=== PATIENT | female | born 1940 | race Caucasian/White ===

== ENCOUNTER 2017-06-19 12:23 | Emergency (ER) | payer MEDICARE ==
[~2017-06-19] VITALS: Ht 154.9 cm; Wt 82.6 kg
[~2017-06-19 12:23] MED LIST: ALLOPURINOL100 MG PO; AMLODIPINE BESYL5 MG PO; ATORVASTATIN CA20 MG PO; DIOVAN160 MG PO; FUROSEMIDE40 MG PO; GENERLAC10 GM/15 M; HUMULIN R100 UNIT/2 SC; HUMULIN R100 UNIT/2 SQ; HYDRALAZINE HCL10 MG PO; LEVEMIR100 UNIT/1 SQ; LEVOTHYROXINE50 MCG PO; METOPROLOL TART25 MG PO; METOPROLOL TART50 MG PO; NEXIUM20 MG PO; OMEGA-31000 MG PO; PANTOPRAZOLE SO40 MG PO; PLAVIX75 MG PO; PRAVASTATIN SOD80 MG PO; SIMVASTATIN40 MG PO
--- OUTSIDE RECORDS SUMMARY | 2017-06-19 12:25 | XMS REPORT ---
Author Author [facility] Address Unknown Phone Unavailable Care Team Providers Care Senior Quantity Surveyor Name Role Phone SKY LI Unavailable Unavailable Problems This patient has no known problems. Allergies, Adverse Reactions, Alerts This patient has no known allergies or adverse reactions. Medications This patient has no known medications. Results Test Description Test Time Test Comments Text Results Atomic Results Result Comments KNEE RIGHT THREE VIEWS [place] [address] Patient Name: TESS MCLAIN MR #: [id number] : 1940 Age/Sex: 76/F Req #: [id number] Adm Physician: Ordered by: SKY LI MD Report #: [id number] Location: ER Room/Bed: Procedure: [id number] DX/KNEE RIGHT THREE VIEWS Exam Date: 02/24/17 Exam Time: 182 REPORT STATUS: Signed RIGHT KNEE X-RAY - 3 VIEWS HISTORY: COMPARISON: None available. FINDINGS: Bones: No acute displaced fracture. Osseous alignment is within normal limits. Joints: Mild to moderate tricompartmental degenerative changes. Soft tissues: Diffuse vascular calcifications. IMPRESSION: No acute radiographic abnormality. Signed by: Dr. Mahesh Mendoza M.D. on 02/24/2017 6:45 PM Dictated By: MAHESH MENDOZA MD 44 COPY TO: SKY LI MD ANKLE 3 + VIEWS RIGHT [place] [id number] [place] [address] Patient Name: TESS MCLAIN MR #: [id number] : 1940 Age/Sex: 76/F Req #: [id number] [facility] Physician: Ordered by: SKY LI MD Report #: [id number] Location: ER Room/Bed: Procedure: [id number] DX/ANKLE 3 + VIEWS RIGHT Exam Date: 02/24/17 Exam Time: 1824 REPORT STATUS: Signed Right ankle x-ray - 3 views HISTORY: COMPARISON: None available. FINDINGS: Bones: No acute displaced fracture. Mild cortical deformity of the medial malleolus likely remote trauma. Mild diffuse bone demineralization. Osseous alignment is within normal limits. Joints: Mild degenerative changes of the metatarsal bones. Calcaneal enthesopathy. Soft tissues: Soft tissue swelling surrounding the right ankle. IMPRESSION: Soft tissue swelling surrounding the right ankle without acute fractures. Signed by: Dr. Mahesh Mendoza M.D. on 02/24/2017 6:44 PM Dictated By: MAHESH MENDOZA MD 43 Transcribed By: ISAEL on 1843 COPY TO: SKY LI MD ELBOW LEFT COMPLETE [facility] [address] [place] [address] Patient Name: TESS MCLAIN MR #: [id number] : 1940 Age/Sex: 76/F Req #: [id number] Adm Physician: Ordered by: SKY LI MD Report #: [id number] Location: ER Room/Bed: Procedure: [id number] DX/ELBOW LEFT COMPLETE Exam Date: 02/24/17 Exam Time: 1824 REPORT STATUS: Signed LEFT ELBOW X-RAY - 3 VIEWS HISTORY: COMPARISON: None available. FINDINGS: Bones: No acute displaced fracture. Osseous alignment is within normal limits. Joints: The joint spaces are well-maintained. Soft tissues: The soft tissues appear unremarkable. IMPRESSION: No acute radiographic abnormality. Signed by: Dr. Mahesh Mendoza M.D. on 02/24/2017 6:46 PM Dictated By: MAHESH MEDNOZA MD 45 Transcribed By: ISAEL on 02/24/171845 COPY TO: SKY LI MD
--- NOTE | 2017-06-19 13:52 | Diagnostic Imaging Report ---
Examination: CT BRAIN WITHOUT CONTRAST History:Headaches. Comparison studies:None Technique: Axial images were obtained from the skull base to the vertex. Coronal and sagittal images reconstructed from the axial data. Intravenous contrast: None Findings: Scalp: No abnormalities. Bones: No fractures, blastic or lytic lesions. Brain sulci: Mild volume loss for age. Ventricles: No hydrocephalus. Extra-axial space: No abnormalities. Parenchyma: There is a chronic infarct of the right centrum semiovale, unchanged. There are chronic lacunar infarcts of the right striatocapsular region, bilateral putamina and left lateral thalamus. Again demonstrated are patchy areas of hypoattenuation in the periventricular and subcortical white matter, nonspecific. No masses, hemorrhage, or acute cortical based vascular insults. Sellar/suprasellar region: No abnormalities. Craniocervical junction: Patent foramen magnum. No Chiari one malformation. Incidental findings: None. Impression: 1. No new or acute intracranial abnormalities. No change from prior head CT performed June 25, 2016. 2. Unchanged mild volume loss. 3. Unchanged moderate chronic microvascular skinny change. 4. Unchanged chronic infarct of the right centrum semiovale. 5. Unchanged chronic lacunar infarcts, as above. Signed by: Dr. Maria Arreola M.D. on 06/19/2017 1:49 PM
--- NOTE | 2017-06-19 14:18 | Diagnostic Imaging Report ---
PROCEDURE: Frontal and lateral views of the chest. COMPARISON: Patients [facility], , CHEST SINGLE (PORTABLE), 11/28/2016, 14:54. INDICATIONS: HEADACHE FINDINGS: Lines/tubes: None. Lungs: The lungs are well inflated and clear. There is no evidence of pneumonia or pulmonary edema. Pleura: There is no pleural effusion or pneumothorax. Heart and mediastinum: Cardiac silhouette is mildly enlarged, but stable. Pulmonary vasculature is normal. Bones: No acute bony abnormality. Degenerative changes in the thoracic spine. IMPRESSION: 1. No acute cardiopulmonary abnormalities. Marquise Bourgeois M.D. Dictated by: Marquise Bourgeois M.D. on 06/19/2017 at 14:17 Electronically approved by: Marquise Bourgeois M.D. on 06/19/2017 at 14:17
[2017-06-19 17:43] VITALS: BP 125/54
== END 2017-06-19 17:45 | disposition home or self-care (01) ==
LOC: ER 12:32
DX: I95.2 Hypotension due to drugs (principal); T46.5X5A Adverse effect of other antihypertensive drugs, initial encounter; Y92.019 Unspecified place in single-family (private) house as the place of occurrence of the external cause; E11.9 Type 2 diabetes mellitus without complications; E78.5 Hyperlipidemia, unspecified; Z86.73 Personal history of transient ischemic attack (TIA), and cerebral infarction without residual deficits
CPT/HCPCS: 70450; 71046; 93005; 99283

== ENCOUNTER 2017-12-20 17:25 | Inpatient (IN) | payer MEDICARE ==
[~2017-12-20] VITALS: Ht 154.9 cm; Wt 68.7 kg
[~2017-12-20 17:25] MED LIST changes: +SODIUM BICARBO650 MG PO; +vit b 12
--- NOTE | 2017-12-20 18:03 | Diagnostic Imaging Report ---
Examination: Single AP view of the chest. COMPARISON: Chest 2 views 06/19/2017 INDICATION: Abdominal pain, weakness IMPRESSION: 1. Lines and Tubes: None 2. Lungs are grossly clear. No consolidation or effusion. 3. Stable mild enlargement of the cardiac silhouette. Pulmonary vasculature is normal. Atherosclerotic calcification of the aortic arch. 4. No acute bony abnormalities. Stable widening of the right acromial clavicular space, which may represent prior AC separation. Signed by: Dr. Marquise Bourgeois M.D. on 12/20/2017 6:00 PM
[2017-12-20 18:17] LABS: BASOPHILS % 0.5 % (0.0-1.0); EOSINOPHILS # (AUTO) 0.1 (0.0-0.4); EOSINOPHILS % 1.4 % (0.0-6.0); HEMATOCRIT 31.8 % (34.2-44.1); HEMOGLOBIN 10.4 g/dL (12.0-16.0); LYMPHOCYTES # (AUTO) 1.3 (1.0-3.2); LYMPHOCYTES % 19.4 % (18.0-39.1); MEAN CORPUSCULAR HEMOGLOBIN 31.5 pg (28-32); MEAN CORPUSCULAR HGB CONC 32.7 g/dL (31-35); MEAN CORPUSCULAR VOLUME 96.4 fL (81-99); MONOCYTES # (AUTO) 0.5 (0.2-0.8); NEUTROPHILS # (AUTO) 4.6 (2.1-6.9); NEUTROPHILS % 70.2 % (38.7-80.0); PLATELET COUNT 154 x10e3/uL (140-360); RED CELL DISTRIBUTION WIDTH 12.7 % (11.7-14.4)
[2017-12-20 18:20] LABS: CLARITY,URINE SL CLOUDY (CLEAR); COLOR,URINE YELLOW (YELLOW); KETONES,URINE 1+ (NEGATIVE); LEUKOCYTE ESTERASE ,URINE 2+ (NEGATIVE); NITRITE,URINE NEGATIVE (NEGATIVE); PROTEIN,URINE DIPSTICK 2+ (NEGATIVE); URINE UROBILINOGEN 0.2 mg/dL (0.2 - 1)
[2017-12-20 18:21] LABS: BILIRUBIN,URINE 2+ (NEGATIVE)
[2017-12-20 18:25] LABS: INR 1.55; PROTHROMBIN TIME 17.5 seconds (11.9-14.5)
[2017-12-20 18:26] LABS: PARTIAL THROMBOPLASTIN TIME 35.8 seconds (23.8-35.5)
[2017-12-20 18:30] LABS: BACTERIA,URINE MANY /HPF
[2017-12-20 18:35] LABS: ALBUMIN 2.3 g/dL (3.5-5.0); ALBUMIN/GLOBULIN RATIO 0.9 (0.8-2.0); ANION GAP 21.2 mmol/L (8-16); CALCIUM 8.8 mg/dL (8.4-10.2); CREATININE, SERUM 4.79 mg/dL (0.57-1.11); POTASSIUM 4.2 mmol/L (3.5-5.1)
[2017-12-20 18:41] LABS: CREATINE KINASE MB 1.3 ng/mL (0-5.0)
[2017-12-20 18:42] LABS: B-TYPE NATRIURETIC PEPTIDE2 489.7 pg/mL (0-100)
[2017-12-20] MEDS ORDERED: ASPIRIN 81 MG CHEW TAB PO ONE (18:45)
[2017-12-20 20:00] VITALS: BP 107/58
--- NOTE | 2017-12-20 20:20 | Diagnostic Imaging Report ---
EXAM: CT Abdomen and Pelvis WITH contrast INDICATION: Abdominal pain, fall, renal failure, weakness COMPARISON: None. TECHNIQUE: Abdomen and pelvis were scanned utilizing a multidetector helical scanner from the lung base to the pubic symphysis after administration of IV contrast. Coronal and sagittal reformations were obtained. Routine protocol is performed. IV CONTRAST: None. ORAL CONTRAST: None RADIATION DOSE: Total DLP: 583.81 mGy*cm Estimated effective dose: (DLP x 0.015 x size factor) mSv COMPLICATIONS: None FINDINGS: LINES and TUBES: None. LOWER THORAX: Atherosclerotic calcifications of the coronary arteries and thoracic aorta. HEPATOBILIARY: No focal hepatic lesions. The common bile duct is mildly dilated to 1.1 cm. GALLBLADDER: The gallbladder is distended. No radio-opaque stones or sludge. No wall thickening. SPLEEN: No splenomegaly. PANCREAS: No focal masses or ductal dilatation. ADRENALS: No adrenal nodules KIDNEYS/URETERS: No hydronephrosis. No cystic or solid mass lesions. A 3 mm calcification in the upper pole of the left kidney (series 401, image 59) is favored to represent a vascular calcification rather than a stone. GI TRACT: No abnormal distention, wall thickening, or evidence of bowel obstruction. There is a large amount of stool in the distal sigmoid and rectum. There are numerous sigmoid diverticula without evidence of acute inflammation. Unusual appearance of the proximal colon suggests prior right colon surgery. The appendix is not visualized. PELVIC ORGANS/BLADDER: The bladder is collapsed by a Bryson catheter. LYMPH NODES: No lymphadenopathy. VESSELS: There is severe atherosclerotic disease in the aorta and major arterial branches. PERITONEUM / RETROPERITONEUM: No free air or fluid. BONES: Multilevel degenerative changes of the thoracic and lumbar spine. There is a vertebral body hemangioma in the T9 vertebral body. SOFT TISSUES: There are multiple soft tissue nodules in the subcutaneous fat of the abdomen, likely related to subcutaneous injections. IMPRESSION: 1. Large amount of stool in the distal sigmoid and rectum, suggestive of constipation. 2. The gallbladder is distended. The common bile duct is mildly dilated. Consider right upper quadrant ultrasound to exclude cholelithiasis or choledocholithiasis. Edmond Jaquez MD Signed by: Dr. Edmond Jaquez M.D. on 12/20/2017 8:17 PM
[2017-12-20 22:45] VITALS: BP 107/58
[2017-12-20] MEDS ORDERED: XARELTO10 MG PO (22:56)
[2017-12-21] VITALS (9 sets, daily range): BP systolic 91–119; BP diastolic 52–66
[2017-12-21] MEDS: CEFTRIAXONE SOD 1 GM VIAL IV SCH (00:28)
[2017-12-21 03:52] LABS: BASOPHILS % 0.3 % (0.0-1.0); EOSINOPHILS # (AUTO) 0.1 (0.0-0.4); EOSINOPHILS % 1.9 % (0.0-6.0); HEMATOCRIT 32.8 % (34.2-44.1); HEMOGLOBIN 10.6 g/dL (12.0-16.0); LYMPHOCYTES # (AUTO) 1.7 (1.0-3.2); LYMPHOCYTES % 26.3 % (18.0-39.1); MEAN CORPUSCULAR HEMOGLOBIN 31.2 pg (28-32); MEAN CORPUSCULAR HGB CONC 32.3 g/dL (31-35); MEAN CORPUSCULAR VOLUME 96.5 fL (81-99); MONOCYTES # (AUTO) 0.5 (0.2-0.8); MONOCYTES % 7.9 % (4.4-11.3); NEUTROPHILS # (AUTO) 4.1 (2.1-6.9); NEUTROPHILS % 63.3 % (38.7-80.0); PLATELET COUNT 140 x10e3/uL (140-360); RED CELL DISTRIBUTION WIDTH 12.7 % (11.7-14.4)
[2017-12-21 04:08] LABS: ALBUMIN 2.4 g/dL (3.5-5.0); ALKALINE PHOSPHATASE 81 IU/L (40-150); ANION GAP 19.8 mmol/L (8-16); BLOOD UREA NITROGEN 64 mg/dL (7-26); BUN/CREATININE RATIO 13 (6-25); CALCIUM 9.1 mg/dL (8.4-10.2); CARBON DIOXIDE 25 mmol/L (22-29); CHLORIDE 100 mmol/L (98-107); CREATININE, SERUM 4.87 mg/dL (0.57-1.11); EST GLOMERULAR FILTRATION RATE 9 ML/MIN (60-); GLUCOSE 68 mg/dL (74-118); POTASSIUM 3.8 mmol/L (3.5-5.1); SODIUM 141 mmol/L (136-145)
[2017-12-21 04:09] LABS: ALANINE AMINOTRANSFERASE < 6 IU/L (0-55)
[2017-12-21 04:55] LABS: CREATINE KINASE MB 1.5 ng/mL (0-5.0)
[2017-12-21] MEDS: LEVOTHYROXINE SODIUM 50 MCG TAB PO SCH (06:42)
--- NOTE | 2017-12-21 07:23 | Consultation ---
DATE OF CONSULTATION: December 21, 2017 HISTORY OF PRESENT ILLNESS: Patient is a 76-year-old female, who was admitted to the hospital with weakness and urinary tract infection. She has history of chronic kidney disease, has a left upper arm AV fistula, which was placed about 2-1/2 months ago, has not quite developed enough for dialysis and the patient may need hemodialysis soon, although evaluation by nephrology is pending at this time. Patient has no specific complaints at this time. Says she feels better since she was admitted. PAST MEDICAL HISTORY: Significant for diabetes, chronic kidney disease, hypertension, recent cerebrovascular accident. MEDICATIONS: Listed in the chart. ALLERGIES: SHE HAS ALLERGIES TO ATORVASTATIN, CIPRO, HYDROMORPHONE, ROSUVASTATIN AND ADHESIVE TAPE. FAMILY HISTORY: Noncontributory. SOCIAL HISTORY: The patient does not smoke cigarettes or drink alcohol. REVIEW OF SYSTEMS: Negative except for as stated above. She has no chest pain. No fever. No shortness of breath. EXAM GENERAL: The patient is awake and alert. VITALS: Normal. HEENT: Reveals no scleral icterus. NECK: Has no masses. LUNGS: Equal breath sounds, are clear bilaterally. CARDIAC: Has irregular rate and rhythm. ABDOMEN: Soft. There is no tenderness. EXTREMITIES: There is a healed wound on left arm with a palpable thrill over the fistula. Fistula is palpable, but seems somewhat deep in the arm. There is no edema. LAB TESTS: White blood cell count is normal, hemoglobin 10, hematocrit 33. Chemistries, elevated BUN at a 64, creatinine 4.87. Urinalysis revealed 11-20 white cells, positive leukocyte esterase, positive ketones, many bacteria. ASSESSMENT: A 76-year-old female with chronic kidney disease, possibly end-stage. Await nephrology evaluation if she needs new access for hemodialysis at this time. In which case, a tack catheter could be placed, possibly a tunneled catheter as the arteriovenous fistula in her left arm is not quite ready to be used. This was explained to the patient. Thank you for asking me to see Ms. Persaud. Job#: [id number] CQ
[2017-12-21] MEDS: ACETAMINOPHEN/CODEINE 300MG - 30MG TAB PO PRN ×2 (08:50→16:06)
[2017-12-21] MEDS: PANTOPRAZOLE SOD 40 MG TABEC PO SCH ×2 (08:50→17:40)
[2017-12-21] MEDS ORDERED: SIMVASTATIN 40 MG TAB PO SCH (09:00)
[2017-12-21] MEDS ORDERED: METOPROLOL TARTRATE 25 MG TAB PO SCH (09:00)
[2017-12-21] MEDS: PRAVASTATIN 20 MG TAB PO SCH (09:13)
[2017-12-21] MEDS: SODIUM BICARBONATE 650 MG TAB PO SCH (09:13)
[2017-12-21] MEDS: METOPROLOL TARTRATE 50 MG TAB PO SCH ×2 (09:13→17:00)
[2017-12-21] MEDS: BISACODYL 10 MG SUPP PR PRN (09:13)
--- NOTE | 2017-12-21 10:28 | Consultation ---
DATE OF CONSULTATION: RENAL CONSULTATION Thank you for the consultation. Ms. Persaud is a pleasant 76-year-old female patient of mine with chronic kidney disease, stage 5, who I have been following for quite some time in the office, and has been close to starting on dialysis. She has a recent AV fistula placed on the left arm, which is still maturing. She has been seen by Dr. Marshall for this. The patient has been having ongoing uremic symptoms, which have now worsened. Her daughter called me a couple of days ago stating that the mother is feeling extremely weak and having nausea and vomiting, and is just not able to eat much at all and has decreased appetite. She proceeded to bring her to the emergency room. The patient was found to have elevated renal indices. BUN 62 and creatinine was 4.79 today and 4.9. BUN was 64, potassium 3.8. Renal consultation has been asked for in the management of her chronic kidney disease, 5, and the possibility of starting her dialysis sooner than later. I did discuss the case with her daughter, as well as the patient. The patient is agreeable especially since she is having more and more uremic symptoms, and is just not getting any better. Her AV fistula is not quite ready to be cannulated yet. She will likely need a tunneled dialysis catheter, which she is agreeable to as well. At the present time in her room, she is not in any acute respiratory distress. Does not have any fever. No chills. No abdominal pain. Does have nausea, vomiting and decreased appetite. She does have generalized pain as well. 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 MEDICATIONS: That she has been on is Plavix, levothyroxine, metoprolol, Protonix, pravastatin, Xarelto, and sodium bicarbonate. ALLERGIES: ADHESIVE TAPE, ATORVASTATIN, CIPROFLOXACIN, HYDROMORPHONE, ROSUVASTATIN. FAMILY HISTORY: Noncontributory. SOCIAL HISTORY: No tobacco. No alcohol use. REVIEW OF SYSTEMS: As per HPI, and all other systems negative. PHYSICAL EXAMINATION VITAL SIGNS: Blood pressure is 116/58, pulse 73, afebrile, respirations 17. HEENT: No cervical lymphadenopathy. NECK: Supple without masses. No JVD. Mucosa is moist with good skin turgor. CHEST: Good expansion. No chest wall tenderness. Lungs are clear to auscultation bilaterally. CARDIOVASCULAR: S1 and S2. No obvious gallop, rub or murmur. ABDOMEN: Soft and nontender. Positive bowel sounds. EXTREMITIES: No lower extremity edema. No clubbing. No cyanosis. NEUROLOGIC: Has left-sided weakness. Otherwise, grossly otherwise nonfocal exam. LABORATORY WORKUP: As follows: Sodium 141, potassium 3.8, chloride 100, carb 25, BUN 64, creatinine 4.9. Lactic acid 9.6. Calcium 9.1. IMPRESSION AND PLAN 1. End-stage renal disease: The patient is essentially end-stage renal disease based on GFR, and now with persistent uremic symptoms. The patient is agreeable to starting dialysis while here in the hospital, and then will arrange for outpatient dialysis for her. Dr. Marshall, her surgeon, has also been consulted to see whether or not the arteriovenous fistula is ready to be used. For now, since dialysis is required to be started today, I will have interventional radiology place a tunneled dialysis catheter and then start dialysis as soon as that is placed. Will also make arrangements for outpatient dialysis. 2. Hypertension: Continue current home medications. 3. Anemia of chronic disease: Stable for now. Will continue to monitor closely. Thank you once again for the consultation. Will follow the patient closely with you and make further recommendations. Job#: [id number] RI cc:AXEL MURDOCK MD
[2017-12-21 12:33] LABS: CREATINE KINASE MB 1.6 ng/mL (0-5.0)
--- NOTE | 2017-12-21 13:09 | Diagnostic Imaging Report ---
EXAM: Right upper quadrant abdominal ultrasound INDICATION: Evaluate for cholecystitis. COMPARISON: None. TECHNIQUE: Transverse and longitudinal images of the right upper quadrant abdomen were obtained FINDINGS: Liver: Size: 11.7 cm in the right midclavicular line, normal Appearance: Normal echogenicity, smooth contour Mass: No evidence of mass. Gallbladder: Appears distended without pericholecystic fluid, wall thickening, stone, or reported sonographic Wing's sign. Gallbladder wall measures 0.2 cm. A fold is seen at the neck of the gallbladder. Bile Ducts: Intrahepatic Ducts: No dilatation Extrahepatic Ducts: Common bile duct measures 0.2 cm, no dilatation Pancreas: Visualized portions of the pancreatic head, neck and proximal body are normal. Kidney: The right kidney measures 10.3 cm without evidence of hydronephrosis or stone. Vessels: Aorta: Visualized portions are normal Inferior Vena Cava: Visualized portions are normal Main Portal Vein: 0.5 cm, normal size with hepatopetal flow. Free Fluid: No ascites. IMPRESSION: Distended gallbladder without sonographic evidence of cholecystitis or cholelithiasis. Signed by: Dr. Tima Brown MD on 12/21/2017 1:06 PM
[2017-12-21] MEDS ORDERED: LIDOCAINE HCL 2% LOCAL 20 ML VIAL ONE ×2 (13:21→13:47)
[2017-12-21] MEDS ORDERED: SODIUM CHLORIDE 0.9% 500ML 1,000 ML ONE (13:22)
[2017-12-21] MEDS ORDERED: FENTANYL CITRATE/PF 100MCG/2 ML INJ ONE (13:47)
[2017-12-21] MEDS ORDERED: MIDAZOLAM HCL 2 MG/2 ML VIAL ONE (13:47)
[2017-12-21] MEDS ORDERED: HEPARIN SOD (PORCINE) 1000 UNIT/ML 30ML ONE (14:05)
[2017-12-21] MEDS ORDERED: SODIUM CHLORIDE 0.9% 1000ML 1,000 ML ONE (18:38)
[2017-12-21] MEDS: ONDANSETRON HCL INJ 2 MG/ML VIAL IV PRN (20:30)
[2017-12-21] MEDS ORDERED: NITROGLYCERIN 2.5 MG PO STA (21:00)
[2017-12-21] MEDS ORDERED: NITROGLYCERIN 0.4 MG SUBL SL STA (21:17)
[2017-12-21] MEDS ORDERED: ASPIRIN 81 MG CHEW TAB PO STA (22:01)
[2017-12-21 23:00] LABS: CREATINE KINASE MB 1.6 ng/mL (0-5.0)
[2017-12-22] VITALS (7 sets, daily range): BP systolic 83–161; BP diastolic 46–66
[2017-12-22] MEDS: CEFTRIAXONE SOD 1 GM VIAL IV SCH (00:30)
[2017-12-22] MEDS: ACETAMINOPHEN/CODEINE 300MG - 30MG TAB PO PRN (05:25)
[2017-12-22] MEDS: NITROGLYCERIN 0.4 MG SUBL SL PRN (05:36)
[2017-12-22] MEDS: LEVOTHYROXINE SODIUM 50 MCG TAB PO SCH (05:37)
[2017-12-22] MEDS: ONDANSETRON HCL INJ 2 MG/ML VIAL IV PRN (05:37)
[2017-12-22 06:30] LABS: BASOPHILS % 0.5 % (0.0-1.0); EOSINOPHILS % 0.7 % (0.0-6.0); HEMATOCRIT 30.5 % (34.2-44.1); HEMOGLOBIN 9.6 g/dL (12.0-16.0); LYMPHOCYTES # (AUTO) 1.3 (1.0-3.2); LYMPHOCYTES % 21.7 % (18.0-39.1); MEAN CORPUSCULAR HEMOGLOBIN 31.5 pg (28-32); MEAN CORPUSCULAR HGB CONC 31.5 g/dL (31-35); MONOCYTES # (AUTO) 0.5 (0.2-0.8); MONOCYTES % 8.7 % (4.4-11.3); NEUTROPHILS # (AUTO) 4.1 (2.1-6.9); NEUTROPHILS % 67.9 % (38.7-80.0); PLATELET COUNT 148 x10e3/uL (140-360); RED BLOOD COUNT 3.05 x10e6/uL (3.6-5.1); RED CELL DISTRIBUTION WIDTH 13.2 % (11.7-14.4)
[2017-12-22 06:47] LABS: ANION GAP 21.2 mmol/L (8-16); CALCIUM 8.7 mg/dL (8.4-10.2); CREATININE, SERUM 5.19 mg/dL (0.57-1.11); MAGNESIUM 1.7 MG/DL (1.3-2.1); PHOSPHORUS 6.1 MG/DL (2.3-4.7); POTASSIUM 4.2 mmol/L (3.5-5.1)
[2017-12-22 07:17] LABS: CREATINE KINASE MB 1.6 ng/mL (0-5.0)
[2017-12-22] MEDS ORDERED: SODIUM CHLORIDE 0.9% 1000ML 1,000 ML ONE (07:36)
[2017-12-22] MEDS ORDERED: PROMETHAZINE 12.5MG/ NACL 0.9% 12.5 MG/50 ML BAG IV ONE (07:45)
[2017-12-22] MEDS ORDERED: SODIUM CHLORIDE 0.9% 1000ML 1,000 ML IV SCH (07:45)
[2017-12-22] MEDS: PANTOPRAZOLE SOD 40 MG TABEC PO SCH ×2 (08:15→17:32)
[2017-12-22] MEDS: SODIUM BICARBONATE 650 MG TAB PO SCH (08:15)
[2017-12-22] MEDS: ASPIRIN 81 MG CHEW TAB PO SCH (08:15)
[2017-12-22] MEDS: METOPROLOL TARTRATE 50 MG TAB PO SCH (08:15)
[2017-12-22] MEDS: PRAVASTATIN 20 MG TAB PO SCH (08:15)
[2017-12-22] MEDS: BALSAM PERU/CASTOR OIL 5 GM OINT...G. TP SCH (08:50)
[2017-12-22] MEDS ORDERED: SODIUM CHLORIDE 0.9% 1000ML 2,000 ML IV PRN (11:45)
[2017-12-22] MEDS ORDERED: MANNITOL 25% 12.5GM/50 ML VIAL IV PRN (11:45)
--- NOTE | 2017-12-22 13:17 | Progress Note ---
DATE: December 22, 2017 RENAL PROGRESS NOTE SUBJECTIVE: Patient followed for end-stage renal disease. Patient had a temporary dialysis catheter placed yesterday since the patient has been on blood thinners. Therefore, interventional radiology was not able to put a tunneled dialysis catheter. That will be placed next week once the patient has been off the blood thinners. The patient is currently going to get her 1st dialysis treatment since the temporary dialysis catheter was placed late. Currently seen in her room in no acute distress. No fever, no chills, no nausea, no vomiting. OBJECTIVE VITAL SIGNS: Have been noted. Blood pressures done on the leg are actually shown to be in the 150s/50s, pulse 60s, afebrile, 19 respirations. GENERAL: The patient is not dizzy. LUNGS: Clear to auscultation bilaterally. CARDIOVASCULAR: S1 and S2, no rub. ABDOMEN: Soft and nontender. EXTREMITIES: No edema. LABS: Hemoglobin 9.6, hematocrit 30.5, white count 6.1, platelets 148. Chemistry: Sodium 141, potassium 4.2, chloride 103, bicarb 21, BUN 69, creatinine 5.2, phosphorus 6.1, magnesium 1.7. IMPRESSION AND PLAN 1. End-stage renal disease. Will start 1st dialysis treatment today via temporary dialysis catheter. Early next week, once she has been off blood thinners for at least 72 hours, a tunneled dialysis catheter can be placed. The patient will also require outpatient dialysis placement prior to discharge. Her AV fistula is not quite ready to be used yet. I did discuss the case with Dr. Marshall, her surgeon, who says that he would likely recommend to watch it for maybe another month or so to see whether or not it is developing well enough to be cannulated. 2. Hypertension. Blood pressure is stable. Continue to monitor. Erroneous blood pressures are coming up on the arms. Would recommend to check blood pressures in the lower extremities. I will also hold blood pressure medications for now to prevent tight control of the blood pressure. 3. Anemia of chronic disease. Will start low-dose Epogen and continue to monitor. 4. Hyperphosphatemia. Will start low dose of Renvela. 5. History of cerebrovascular accident. Plan will be as per primary MD. Job#: [id number]
[2017-12-22 15:28] LABS: CREATINE KINASE MB 1.8 ng/mL (0-5.0)
[2017-12-22] MEDS: SEVELAMER CARBONATE 800 MG TAB PO SCH (17:32)
[2017-12-22 20:33] LABS: CHOL/HDL RATIO 4.9 (3.0-3.6)
--- NOTE | 2017-12-22 20:46 | Consultation ---
DATE OF CONSULTATION: December 22, 2017 CARDIOLOGY CONSULTATION REQUESTING PHYSICIAN: Dr. Carolina REASON FOR CONSULTATION: Chest pain. HISTORY OF PRESENT ILLNESS: This is a 76-year-old woman with history of diabetes mellitus, hypertension, hyperlipidemia, history of recent CVA with left-sided weakness and chronic kidney disease stage 5, who presented to [facility] with weakness, nausea, and vomiting. She was felt to have worsening uremic symptoms and started on dialysis after hemodialysis catheter insertion as patient's recently placed AV fistula had not sufficiently matured. Yesterday, the patient began complaining of sharp left-sided chest pain with shortness of breath and palpitations, the pain was 9/10 in severity. Cardiology is therefore consulted for further recommendations. History is limited due to patient's weakness. REVIEW OF SYSTEMS: Negative except as per HPI. PAST MEDICAL HISTORY: 1. Diabetes mellitus. 2. Hypertension. 3. Hyperlipidemia. 4. Recent history of CVA with left-sided weakness. 6. CKD stage 5. 7. Hypothyroidism. 8. GERD. PAST SURGICAL HISTORY: AV fistula. ALLERGIES: PLEASE SEE EMR. MEDICATIONS: Please see medication list. SOCIAL HISTORY: No tobacco or alcohol. FAMILY HISTORY: Pertinent for mother and brother with myocardial infarction. PHYSICAL EXAMINATION: VITAL SIGNS: Temperature 98.1 degrees, pulse 61, respiratory rate 22, blood pressure 161/66, oxygen saturation 100% on room air. GENERAL: Elderly woman, frail, chronic ill-appearing, in no acute distress. HEENT: Normocephalic, atraumatic. Pupils are equal. No scleral icterus. NECK: Supple. No thyromegaly or cervical lymphadenopathy. No carotid bruits. LUNGS: Clear to auscultation bilaterally. No wheezes or crackles. CARDIOVASCULAR: Normal rate and regular rhythm. No murmur. Normal S1 and S2. ABDOMEN: Soft, nontender. EXTREMITIES: No edema. LABS: WBC 6.08, hemoglobin 9.6, hematocrit 30.5, platelets 148,000. Sodium 141, potassium 4.2, chloride 103, CO2 21, BUN 69, creatinine of 5.19. Troponin 0.059. BNP is 489. TELEMETRY: Sinus rhythm with premature supraventricular complexes, right bundle-branch block, left anterior fascicular block, LVH with QRS widening and repolarization abnormality. IMPRESSIONS: 1. Chest pain. 2. End-stage renal disease, being initiated on hemodialysis today. 3. Hypertension. 4. Hyperlipidemia. 5. Diabetes mellitus. 6. Recent cerebrovascular accident. 7. Anemia. 8. Hypothyroidism. RECOMMENDATIONS: Patient has been ruled out for myocardial infarction with serial cardiac biomarkers. Obtain echocardiogram. Given her risk factors, ischemic evaluation is warranted after patient has been initiated on hemodialysis. Continue monitoring patient on telemetry. Continue current cardiac medications. We will check fasting lipid panel. Thank you for this consult. We will continue to follow. Job#: [id number]
[2017-12-23] VITALS (9 sets, daily range): BP systolic 100–173; BP diastolic 55–82
[2017-12-23] MEDS: CEFTRIAXONE SOD 1 GM VIAL IV SCH (00:12)
[2017-12-23] MEDS: NITROGLYCERIN 0.4 MG SUBL SL PRN (01:19)
[2017-12-23] MEDS: LEVOTHYROXINE SODIUM 50 MCG TAB PO SCH (05:24)
[2017-12-23] MEDS ORDERED: VANCOMYCIN 1GM/NS 250 ML 250 ML IV SCH ×2 (06:15→09:00)
[2017-12-23 06:27] LABS: ANION GAP 16.8 mmol/L (8-16); CALCIUM 8.5 mg/dL (8.4-10.2); CREATININE, SERUM 4.04 mg/dL (0.57-1.11); POTASSIUM 3.8 mmol/L (3.5-5.1)
[2017-12-23] MEDS: ASPIRIN 81 MG CHEW TAB PO SCH (08:22)
[2017-12-23] MEDS: SODIUM BICARBONATE 650 MG TAB PO SCH (08:23)
[2017-12-23] MEDS: PANTOPRAZOLE SOD 40 MG TABEC PO SCH ×2 (08:23→16:41)
[2017-12-23] MEDS: PRAVASTATIN 20 MG TAB PO SCH (08:23)
[2017-12-23] MEDS: SEVELAMER CARBONATE 800 MG TAB PO SCH ×3 (08:23→16:41)
[2017-12-23] MEDS: BALSAM PERU/CASTOR OIL 5 GM OINT...G. TP SCH (09:04)
--- NOTE | 2017-12-23 15:14 | Progress Note ---
DATE: December 23, 2017 CARDIOLOGY PROGRESS NOTE SUBJECTIVE: Patient continues to complain of chest pain, but states it is worse with breathing. She denies any shortness of breath. OBJECTIVE VITAL SIGNS: Temperature 96.4 degrees, pulse 72, respiratory rate 20, blood pressure 139/61, oxygen saturation 100% on room air. GENERAL: Elderly woman, frail, in no acute distress. LUNGS: Clear to auscultation bilaterally. No wheezes or crackles. CARDIOVASCULAR: Normal rate and regular rhythm. No murmur. Normal S1 and S2. ABDOMEN: Soft, nontender. EXTREMITIES: No edema. CARDIAC MEDICATIONS 1. Aspirin 81 mg p.o. daily. 2. Levothyroxine 50 mcg p.o. daily. LABS: Sodium 141, potassium 3.8, chloride 103, CO2 25, BUN 39, creatinine 4.04. TELEMETRY: Normal sinus rhythm with PACs. IMPRESSION 1. Chest pain. 2. End-stage renal disease, being initiated on hemodialysis. 3. Hypertension. 4. Hyperlipidemia. 5. Diabetes mellitus. 6. Recent cerebrovascular accident. 7. Anemia. 8. Hypothyroidism. RECOMMENDATIONS: Patient ruled out for myocardial infarction with serial cardiac biomarkers. Given risk factors, ischemic evaluation is warranted. Plan to do this after the patient has been initiated on hemodialysis. Continue monitoring the patient on telemetry. Continue current cardiac medications. Thank you for this consult. We will continue to follow. Job#: [id number] DARREN
--- NOTE | 2017-12-23 22:26 | Consultation ---
DATE OF CONSULTATION: REASON FOR CONSULTATION: The patient has bacteremia. HISTORY OF PRESENT ILLNESS: This patient is a very pleasant 76-year-old female. She recently had a CVA 3 months ago. She also has chronic kidney disease. She just had dialysis line placed yesterday. The patient comes in with feeling weak. No fever, no chills. The patient recently also had an AV fistula, but it is not matured. The patient has underlying history of diabetes mellitus, hypertension, hyperlipidemia, CVA with left-sided weakness, chronic kidney disease, hypothyroidism. Admitted with weakness and not feeling well. The blood cultures show gram-positive cocci, so I was asked to see her. The patient is currently lying in bed comfortably. No complaints. PAST MEDICAL HISTORY: As above. SURGICAL HISTORY: As above. ALLERGIES: ATORVASTATIN AND CIPROFLOXACIN. SOCIAL HISTORY: There is no smoking, any drug abuse or alcohol abuse. FAMILY HISTORY: Hypertension, diabetes. LABS: White count 6.08, hemoglobin 9.6. Sodium 141, potassium 3.8, creatinine 4.04. Blood cultures 2 sets grew coagulase negative Staph. Urine is showing yeast and E. coli. The patient is on vancomycin and ceftriaxone. PHYSICAL EXAMINATION GENERAL: She is currently alert, oriented, does not seem to be in acute distress. VITALS: Stable, currently afebrile. HEENT: She is not icteric. Normocephalic. NECK: Supple. CHEST: Clear, bilateral coarse. HEART: S1, S2. No murmur. ABDOMEN: Soft. IMPRESSION 1. Bacteremia, coagulase-negative staphylococcus, probably contamination. Agree with vancomycin now. Will adjust for kidney function. Recheck complete blood count. Recheck chemistry panel. Recheck her blood cultures. 2. Bacteruria. 3. Will follow with you. Job#: [id number] LEON
[2017-12-24] VITALS (8 sets, daily range): BP systolic 102–142; BP diastolic 50–71
[2017-12-24] MEDS: CEFTRIAXONE SOD 1 GM VIAL IV SCH (00:15)
[2017-12-24] MEDS: NITROGLYCERIN 0.4 MG SUBL SL PRN (05:10)
[2017-12-24] MEDS: LEVOTHYROXINE SODIUM 50 MCG TAB PO SCH (05:22)
[2017-12-24 06:10] LABS: BASOPHILS % 0.5 % (0.0-1.0); EOSINOPHILS # (AUTO) 0.1 (0.0-0.4); EOSINOPHILS % 1.6 % (0.0-6.0); HEMATOCRIT 30.9 % (34.2-44.1); HEMOGLOBIN 9.5 g/dL (12.0-16.0); LYMPHOCYTES # (AUTO) 1.4 (1.0-3.2); LYMPHOCYTES % 23.1 % (18.0-39.1); MEAN CORPUSCULAR HEMOGLOBIN 31.3 pg (28-32); MEAN CORPUSCULAR HGB CONC 30.7 g/dL (31-35); MEAN CORPUSCULAR VOLUME 101.6 fL (81-99); MONOCYTES # (AUTO) 0.5 (0.2-0.8); MONOCYTES % 7.3 % (4.4-11.3); NEUTROPHILS # (AUTO) 4.1 (2.1-6.9); NEUTROPHILS % 66.8 % (38.7-80.0); PLATELET COUNT 144 x10e3/uL (140-360); RED BLOOD COUNT 3.04 x10e6/uL (3.6-5.1); RED CELL DISTRIBUTION WIDTH 13.4 % (11.7-14.4)
[2017-12-24 06:39] LABS: ANION GAP 17.7 mmol/L (8-16); CREATININE, SERUM 4.57 mg/dL (0.57-1.11); MAGNESIUM 1.9 MG/DL (1.3-2.1); PHOSPHORUS 4.2 MG/DL (2.3-4.7); POTASSIUM 3.7 mmol/L (3.5-5.1)
[2017-12-24] MEDS: SEVELAMER CARBONATE 800 MG TAB PO SCH ×3 (08:00→16:51)
[2017-12-24] MEDS ORDERED: VANCOMYCIN 1GM/NS 250 ML 250 ML IV PRN (09:00)
[2017-12-24] MEDS: PRAVASTATIN 20 MG TAB PO SCH (09:00)
--- NOTE | 2017-12-24 09:24 | Progress Note ---
DATE: December 24, 2017 RENAL PROGRESS NOTE SUBJECTIVE: Followed for end-stage renal disease. Dialysis #2 will be done today. Patient still has a temporary catheter. The patient's blood thinners have been held, also the aspirin. We will reconsult IR for a tunneled catheter. No nausea, no vomiting, no shortness of breath. OBJECTIVE VITAL SIGNS: Have been noted and are as follows: Blood pressure is 102/50, 74 pulse, 15 respirations. LUNGS: Clear to auscultation bilaterally. CARDIOVASCULAR: S1 and S2, no rub. ABDOMEN: Soft and nontender. EXTREMITIES: No edema. LABS: Have been reviewed and are as follows: Hemoglobin 9.5, potassium 3.7, BUN 42, creatinine 4.6. IMPRESSION AND PLAN 1. End-stage renal disease. Continue dialysis today and then place on a Sunday, Sunday and Sunday schedule. Will also arrange outpatient dialysis and tunneled catheter placement. 2. Hypertension. Blood pressure is stable. 3. Anemia of chronic disease. Continue Epogen. Job#: [id number]
[2017-12-24] MEDS: PANTOPRAZOLE SOD 40 MG TABEC PO SCH ×2 (10:21→16:30)
[2017-12-24] MEDS: ACETAMINOPHEN/CODEINE 300MG - 30MG TAB PO PRN ×2 (10:22→23:42)
[2017-12-24] MEDS: SODIUM BICARBONATE 650 MG TAB PO SCH (10:22)
[2017-12-24] MEDS: BALSAM PERU/CASTOR OIL 5 GM OINT...G. TP SCH (10:23)
--- NOTE | 2017-12-24 13:16 | Progress Note ---
DATE: December 24, 2017 CARDIOLOGY PROGRESS NOTE SUBJECTIVE: No major events overnight. Getting HIDA scan today. REVIEW OF SYSTEMS: As above, otherwise negative. PHYSICAL EXAMINATION VITAL SIGNS: Temperature 97.4, pulse 74, respiratory rate 16, blood pressure 102/50, and satting 97% on room air. GENERAL: Elderly woman, frail, in no acute distress. CARDIOVASCULAR: Normal rate, regular rhythm. Normal S1 and S2. No murmurs. Palpable carotid pulses. Palpable radial pulses. ABDOMEN: Soft and nontender. EXTREMITIES: No edema. NEURO AND PSYCH: Alert and oriented to person, place and time. LABORATORY DATA: Reviewed. TELEMETRY DATA: Reviewed. Shows normal sinus rhythm with PACs. CURRENT CARDIAC MEDICATIONS: Reviewed. IMPRESSION 1. Chest pain. 2. End-stage renal disease, initiating hemodialysis. 3. Hypertension. 4. Hyperlipidemia. 5. Diabetes. 6. Recent cerebrovascular accident. 7. Anemia. 8. Hypothyroidism. RECOMMENDATIONS: Patient ruled out for acute myocardial infarction with serial biomarkers and EKGs. However given risk factors, recommend getting nuclear stress test with Lexiscan later this week after her dialysis initiation has been completed. In case, patient needs cardiac catheterization after the stress test. Continue monitoring on telemetry and current cardiac medications. Thank you for this consult. We will continue to follow. Job#: [id number] ALEJANDRO
[2017-12-24] MEDS ORDERED: LIDOCAINE HCL 2% LOCAL 20 ML VIAL ONE (14:10)
[2017-12-24] MEDS ORDERED: SODIUM CHLORIDE 0.9% 500ML 500 ML ONE (14:11)
[2017-12-24] MEDS ORDERED: FENTANYL CITRATE/PF 100MCG/2 ML INJ ONE (14:54)
[2017-12-24] MEDS ORDERED: MIDAZOLAM HCL 2 MG/2 ML VIAL ONE (14:54)
[2017-12-24] MEDS ORDERED: SODIUM CHLORIDE 0.9% 1000ML 1,000 ML ONE (14:54)
[2017-12-24] MEDS ORDERED: ALBUMIN 25% 12.5GM 0.25 GM/ML BTL IV PRN (15:00)
[2017-12-24] MEDS ORDERED: MANNITOL 25% 12.5GM/50 ML VIAL IV PRN (15:00)
[2017-12-24] MEDS ORDERED: SODIUM CHLORIDE 0.9% 1000ML 2,000 ML IV PRN (15:00)
[2017-12-24] MEDS ORDERED: SODIUM CHLORIDE 0.9% 250ML 500 ML IV PRN (15:00)
[2017-12-24] MEDS ORDERED: HEPARIN SOD (PORCINE) 1000 UNIT/ML SDV IV PRN (15:00)
[2017-12-24] MEDS ORDERED: LIDOCAINE 1% W/EPINEPHRINE 20 ML VIAL ONE (15:15)
[2017-12-24] MEDS: EPOETIN ALFA 10000 UNIT/ML VIAL SC SCH (20:52)
[2017-12-24] MEDS ORDERED: DEXTROSE 50% SYRINGE 50 ML IV PRN (21:45)
[2017-12-25] MEDS: CEFTRIAXONE SOD 1 GM VIAL IV SCH (00:33)
[2017-12-25 00:49] LABS: BASOPHILS % 0.3 % (0.0-1.0); EOSINOPHILS # (AUTO) 0.1 (0.0-0.4); EOSINOPHILS % 1.4 % (0.0-6.0); HEMATOCRIT 27.2 % (34.2-44.1); HEMOGLOBIN 8.5 g/dL (12.0-16.0); LYMPHOCYTES % 15.4 % (18.0-39.1); MEAN CORPUSCULAR HGB CONC 31.3 g/dL (31-35); MEAN CORPUSCULAR VOLUME 99.3 fL (81-99); MONOCYTES # (AUTO) 0.5 (0.2-0.8); MONOCYTES % 7.7 % (4.4-11.3); NEUTROPHILS # (AUTO) 4.7 (2.1-6.9); NEUTROPHILS % 74.7 % (38.7-80.0); PLATELET COUNT 126 x10e3/uL (140-360); RED BLOOD COUNT 2.74 x10e6/uL (3.6-5.1); RED CELL DISTRIBUTION WIDTH 13.2 % (11.7-14.4)
[2017-12-25 01:11] LABS: INR 1.86; PROTHROMBIN TIME 20.1 seconds (11.9-14.5)
[2017-12-25 03:55] VITALS: BP 92/71
[2017-12-25] MEDS: LEVOTHYROXINE SODIUM 50 MCG TAB PO SCH (05:53)
[2017-12-25 06:46] LABS: BASOPHILS % 0.6 % (0.0-1.0); EOSINOPHILS # (AUTO) 0.1 (0.0-0.4); EOSINOPHILS % 2.1 % (0.0-6.0); HEMATOCRIT 26.7 % (34.2-44.1); HEMOGLOBIN 8.2 g/dL (12.0-16.0); LYMPHOCYTES # (AUTO) 1.1 (1.0-3.2); MEAN CORPUSCULAR HEMOGLOBIN 31.1 pg (28-32); MEAN CORPUSCULAR HGB CONC 30.7 g/dL (31-35); MEAN CORPUSCULAR VOLUME 101.1 fL (81-99); MONOCYTES # (AUTO) 0.5 (0.2-0.8); MONOCYTES % 10.1 % (4.4-11.3); NEUTROPHILS # (AUTO) 3.4 (2.1-6.9); NEUTROPHILS % 65.4 % (38.7-80.0); PLATELET COUNT 126 x10e3/uL (140-360); RED BLOOD COUNT 2.64 x10e6/uL (3.6-5.1); RED CELL DISTRIBUTION WIDTH 13.4 % (11.7-14.4)
[2017-12-25 07:05] LABS: ANION GAP 15.1 mmol/L (8-16); CALCIUM 8.9 mg/dL (8.4-10.2); CREATININE, SERUM 2.36 mg/dL (0.57-1.11); MAGNESIUM 1.7 MG/DL (1.3-2.1); PHOSPHORUS 2.4 MG/DL (2.3-4.7); POTASSIUM 4.1 mmol/L (3.5-5.1)
[2017-12-25 08:00] VITALS: BP 100/65
[2017-12-25] MEDS: PANTOPRAZOLE SOD 40 MG TABEC PO SCH ×2 (08:37→16:26)
[2017-12-25] MEDS: BALSAM PERU/CASTOR OIL 5 GM OINT...G. TP SCH (08:37)
[2017-12-25] MEDS: SEVELAMER CARBONATE 800 MG TAB PO SCH (08:37)
[2017-12-25] MEDS: PRAVASTATIN 20 MG TAB PO SCH (08:37)
[2017-12-25] MEDS: SODIUM BICARBONATE 650 MG TAB PO SCH (08:37)
[2017-12-25] MEDS ORDERED: CLOPIDOGREL BISULFATE 75 MG TAB PO SCH (09:00)
--- NOTE | 2017-12-25 09:31 | Progress Note ---
DATE: December 25, 2017 RENAL PROGRESS NOTE SUBJECTIVE: Followed for end-stage renal disease. The patient has been tolerating dialysis. Had dialysis treatment #2 yesterday. The patient had a tunneled catheter placed apparently after she was transferred over to the medical floor. Started to have oozing of blood from the tunneled catheter site. Overnight, pressure dressing was applied. She was transferred to the [facility]. She has a pressure dressing right now. There is no fresh blood. However, apparently she was placed back on her Plavix yesterday. No nausea. No vomiting. No shortness of breath. OBJECTIVE VITAL SIGNS: Have been noted. Blood pressure is on the low side of 100/65, pulse 68, respirations 18. LUNGS: Clear to auscultation bilaterally. CARDIOVASCULAR: S1 and S2. No rubs. ABDOMEN: Soft and nontender. EXTREMITIES: No edema. LABS: Potassium is 4.1, BUN 15, creatinine 2.36. Calcium 8.9. Phosphorus 2.4. Magnesium 1.7. Hematology shows hemoglobin of 8.2, hematocrit 26.7. IMPRESSION AND PLAN 1. End-stage renal disease: Will continue dialysis on Sunday, Sunday and Sunday while here. Will await for outpatient dialysis placement. 2. Malfunctioning dialysis catheter site: Need to have interventional radiology take look at the exit site to whether or not it needs to be sutured better to avoid oozing of blood. For now, hold her blood thinners, including the Plavix and aspirin. 3. Anemia of chronic disease: Will transfuse 1 unit of packed red blood cells with dialysis tomorrow. Continue Epogen. 4. Hypertension: Blood pressure is on the low side of normal. Will hold all blood pressure medicines for now. Job#: [id number] PRASANTH
[2017-12-25] MEDS ORDERED: LIDOCAINE HCL 1% LOCAL INJ 20 ML VIAL ONE (10:52)
[2017-12-25] MEDS ORDERED: SINCALIDE 3 MCG/VIAL INJ ONE (12:29)
[2017-12-25 12:48] VITALS: BP 99/65
[2017-12-25 16:00] VITALS: BP 117/56
[2017-12-25 20:00] VITALS: BP 138/81
--- NOTE | 2017-12-25 20:04 | Progress Note ---
DATE: December 25, 2017 SUBJECTIVE: No major events overnight. REVIEW OF SYSTEMS: A 10-point review of systems is negative. OBJECTIVE VITAL SIGNS: Temperature 97.0, pulse 79, respiratory rate 16, blood pressure 117/56, satting 100% on room air. GENERAL: Elderly woman, frail, in no acute distress. CARDIOVASCULAR: Normal rate, regular rhythm. Normal S1 and S2. No murmurs. Palpable carotid pulses. Palpable radial pulses. ABDOMEN: Soft and nontender. EXTREMITIES: No edema. NEURO AND PSYCH: Alert and oriented to person, place and time. LABORATORY DATA: Reviewed. TELEMETRY DATA: Reviewed. Shows sinus rhythm with PACs. CARDIOVASCULAR MEDICATIONS: Reviewed. ASSESSMENT 1. Chest pain. 2. End-stage renal disease, initiating dialysis. 3. Hypertension. 4. Hyperlipidemia. 5. Diabetes. 6. Recent cerebrovascular accident. 7. Anemia. 8. Hypothyroidism. RECOMMENDATIONS: The patient ruled out for myocardial infarction. Given risk factors, recommend getting a Lexiscan Nuclear Stress Test on December 27. Continue current cardiovascular medications otherwise. Job#: [id number]
[2017-12-25] MEDS ORDERED: LORAZEPAM INJ 2 MG/ML VIAL IV PRN (20:30)
[2017-12-26] VITALS (8 sets, daily range): BP systolic 101–141; BP diastolic 48–81
[2017-12-26] MEDS: CEFTRIAXONE SOD 1 GM VIAL IV SCH ×2 (03:00→23:41)
[2017-12-26 05:48] LABS: BASOPHILS % 0.5 % (0.0-1.0); EOSINOPHILS # (AUTO) 0.1 (0.0-0.4); EOSINOPHILS % 3.4 % (0.0-6.0); HEMATOCRIT 25.1 % (34.2-44.1); HEMOGLOBIN 7.9 g/dL (12.0-16.0); LYMPHOCYTES # (AUTO) 1.1 (1.0-3.2); LYMPHOCYTES % 27.5 % (18.0-39.1); MEAN CORPUSCULAR HEMOGLOBIN 31.5 pg (28-32); MEAN CORPUSCULAR HGB CONC 31.5 g/dL (31-35); MONOCYTES # (AUTO) 0.4 (0.2-0.8); MONOCYTES % 8.9 % (4.4-11.3); NEUTROPHILS # (AUTO) 2.4 (2.1-6.9); NEUTROPHILS % 58.7 % (38.7-80.0); PLATELET COUNT 115 x10e3/uL (140-360); RED BLOOD COUNT 2.51 x10e6/uL (3.6-5.1); RED CELL DISTRIBUTION WIDTH 13.4 % (11.7-14.4)
[2017-12-26 06:09] LABS: ANION GAP 13.8 mmol/L (8-16); CREATININE, SERUM 3.04 mg/dL (0.57-1.11); MAGNESIUM 1.6 MG/DL (1.3-2.1); PHOSPHORUS 2.7 MG/DL (2.3-4.7); POTASSIUM 3.8 mmol/L (3.5-5.1)
[2017-12-26] MEDS: LEVOTHYROXINE SODIUM 50 MCG TAB PO SCH (06:15)
[2017-12-26] MEDS: PANTOPRAZOLE SOD 40 MG TABEC PO SCH ×2 (08:06→17:06)
[2017-12-26] MEDS ORDERED: SODIUM CHLORIDE 0.9% 250ML 250 ML IV ONE (08:15)
[2017-12-26] MEDS: BALSAM PERU/CASTOR OIL 5 GM OINT...G. TP SCH (09:29)
[2017-12-26] MEDS: PRAVASTATIN 20 MG TAB PO SCH (09:29)
--- NOTE | 2017-12-26 10:10 | Diagnostic Imaging Report ---
Procedure: Right internal jugular non-tunneled hemodialysis catheter placement with fluoroscopic guidance depositing machine operator: Dr. Tima Brown Pre-operative diagnosis: Requiring HD access. Post-operative diagnosis: Status post HD access placement Conscious Sedation: None The patient's heart rate and pulse oximetry were continuously monitored by the incinerator plant laborer nurse. Additional Medications: Lidocaine 1% for local anesthesia Fluoroscopy time: 3.9 Dose-area Product: 121.3 mGycm2. Estimated blood loss: Minimal Specimens: None Implants: 14 Fr x 15 cm Schon non-tunneled hemodialysis catheter TECHNIQUE/FINDINGS: Informed consent was obtained from the patient and documented in the medical record after discussion of risks and benefits. The patient was placed in the supine position. Preliminary sonographic evaluation of the right neck confirmed a patent and compressible right internal jugular vein. The neck was then prepped and draped in a standard sterile fashion. Subsequently, 1% lidocaine was infiltrated into the skin and subcutaneous tissues for local anesthesia. Then under continuous sonographic guidance an 18-gauge singlewall needle was advanced into the right internal jugular vein. A 0.035-in. wire was advanced. The needle was removed over the wire and the tract was dilated. Then, a 14 Fr x 15 cm Schon non-tunneled hemodialysis catheter was advanced. Catheter tip terminates at the cavoatrial junction without kinking or pneumothorax. The wire was then removed. Each lumen was tested and showed adequate bidirectional flow. The catheter was secured to the skin with Monocryl, flushed with heparin, and covered by a sterile dressing. The patient tolerated the procedure well without immediate duplication. IMPRESSION: Placement of a 14 Fr x 15 cm non-tunneled hemodialysis catheter via right internal jugular approach under fluoroscopic guidance. Catheter is ready for use. Signed by: Dr. Tima Brown MD on 12/26/2017 10:06 AM
[2017-12-26 12:13] LABS: % IRON SATURATION 20 % (15-50); IRON 21 ug/dL (50-170); TOTAL IRON BINDING CAPACITY 105 ug/dL (261-478); TRANSFERRIN 75 mg/dL (180-382)
--- NOTE | 2017-12-26 12:24 | Progress Note ---
DATE: December 26, 2017 RENAL PROGRESS NOTE SUBJECTIVE: Followed for end-stage renal disease. Tolerating dialysis Sunday/Sunday/Sunday. No nausea, no vomiting, no shortness of breath. Bleeding from exit site of right chest tunneled dialysis catheter has now subsided. Patient's hemoglobin did drop to 7.9. She is to receive 1 unit of packed red blood cells on dialysis. OBJECTIVE VITAL SIGNS: Vital signs have been noted and are as follows: Stable. Blood pressure 114/48, pulse 75, afebrile. LUNGS: Clear to auscultation bilaterally. CARDIOVASCULAR: S1 and S2. No rub. ABDOMEN: Soft, nontender. EXTREMITIES: No edema. LABS: Potassium 3.8, BUN is 18, creatinine is 3.04, magnesium 1.6, phosphorus 2.7, calcium 9. HEMATOLOGY: Hemoglobin 7.9. IMPRESSION AND PLAN 1. End-stage renal disease. Continue dialysis Sunday/Sunday/Sunday. Await outpatient dialysis placement. 2. Hypertension. Blood pressure is stable. Continue to monitor closely and make further recommendations. 3. Anemia of chronic disease. Stable. Will continue to monitor closely and make further recommendations. Will give transfusion of 1 unit PRBC and will also continue IV iron and subcutaneous Epogen. Thank you once again. Will follow the patient closely and make further recommendations. Job#: [id number] PATRICIO
--- NOTE | 2017-12-26 15:58 | Diagnostic Imaging Report ---
PROCEDURE:X-RAY MODIFIED BARIUM SWALLOW COMPARISON:None. INDICATIONS:Not provided. DISCUSSION:Fluoroscopic examination was performed in conjunction with speech pathology, during swallowing of a variety of thin and thick liquid consistencies. There was intermittent deep penetration to the level of the vocal cords with thin liquids. No tracheal aspiration was noted on this examination. CONCLUSION:Laryngeal penetration with thin liquids. No tracheal aspiration was noted on today's examination. Please see the report from speech pathology for complete details. Dictated by: Edmond Jaquez M.D. on 12/26/2017 at 15:59 Electronically approved by: Edmond Jaquez M.D. on 12/26/2017 at 16:04
[2017-12-26] MEDS: EPOETIN ALFA 10000 UNIT/ML VIAL SC SCH (17:06)
--- NOTE | 2017-12-26 18:16 | Progress Note ---
DATE: December 26, 2017 CARDIOLOGY PROGRESS NOTE SUBJECTIVE: She feels tired and still has pain at the tunneled catheter site with some bruising and feels sleepy today. She has been dialyzed 3 times. No more chest pain. REVIEW OF SYSTEMS: As above, otherwise negative. OBJECTIVE VITAL SIGNS: Temperature 96.8, pulse 89, respiratory rate 18, blood pressure 101/72, satting 100% on room air. GENERAL: Elderly, frail, white female in no acute distress. CARDIOVASCULAR: Regular rate and rhythm. No murmurs, rubs or gallops. Palpable carotid pulses. Palpable radial pulses. ABDOMEN: Soft and nontender. No masses. NEURO AND PSYCH: Alert and oriented to person, place and time. Normal affect. LABORATORY DATA: Reviewed and notable for a hemoglobin of 7.9. Platelet count of 115,000. INR is 1.8. IMAGING DATA: Reviewed. TELEMETRY DATA: Reviewed. Normal sinus rhythm. MEDICATIONS: Reviewed. ASSESSMENT 1. Chest pain. 2. End-stage renal disease, now initiated dialysis. 3. Hypertension. 4. Hyperlipidemia. 5. Diabetes. 6. Recent cerebrovascular accident. 7. Anemia. 8. Hypothyroidism. RECOMMENDATIONS: She has been ruled out for myocardial infarction. However, given the nature of the chest pain and her risk factors, will proceed with a Lexiscan Nuclear Stress Test tomorrow morning. Please keep the patient n.p.o. for this test. Otherwise, continue her current cardiovascular medications. Depending on the findings of the stress test, will discuss with the patient regarding risks and benefits of catheterization. Thank you for this consult. Will continue to follow. Job#: [id number]
--- NOTE | 2017-12-26 19:47 | Diagnostic Imaging Report ---
Hepatobiliary Scan with Gallbladder Ejection Fraction Clinical information: 76 F with RUQ abdominal pain. Comparison: Abdominal ultrasound 12/21/2017 Report: Following intravenous administration of 6.2 millicuries of Tc-99m mebrofenin, dynamic images of the abdomen in the anterior projection were obtained through 50 minutes. Sincalide (CCK analog) 1.4 micrograms was administered intravenously over 30 minutes with additional imaging for determination of gallbladder ejection fraction. Perfusion to the liver is normal. Extraction of tracer from the blood pool by the liver parenchyma is normal. Tracer is seen promptly within the biliary tract. The gallbladder begins to fill by 25 minutes post-injection of tracer and fills adequately. Tracer is seen in the small bowel by 40 minutes. The gallbladder ejection fraction with administration of sincalide is 72% (normal greater than 40%). Impression: 1. Filling of the gallbladder excludes the diagnosis of acute cystic duct obstruction/acute cholecystitis. 2. Normal gallbladder ejection fraction of 72% does not support the clinical diagnosis of chronic cholecystitis/gallbladder dyskinesia. Signed by: Dr. Charleen Perez M.D. on 12/26/2017 7:44 PM
[2017-12-27] VITALS (7 sets, daily range): BP systolic 97–118; BP diastolic 57–69
[2017-12-27] MEDS: LEVOTHYROXINE SODIUM 50 MCG TAB PO SCH (05:13)
[2017-12-27 06:40] LABS: BASOPHILS % 0.4 % (0.0-1.0); EOSINOPHILS # (AUTO) 0.1 (0.0-0.4); EOSINOPHILS % 2.4 % (0.0-6.0); HEMATOCRIT 29.8 % (34.2-44.1); HEMOGLOBIN 9.7 g/dL (12.0-16.0); LYMPHOCYTES # (AUTO) 1.2 (1.0-3.2); MEAN CORPUSCULAR HEMOGLOBIN 31.7 pg (28-32); MEAN CORPUSCULAR HGB CONC 32.6 g/dL (31-35); MEAN CORPUSCULAR VOLUME 97.4 fL (81-99); MONOCYTES # (AUTO) 0.4 (0.2-0.8); MONOCYTES % 9.1 % (4.4-11.3); NEUTROPHILS # (AUTO) 2.9 (2.1-6.9); PLATELET COUNT 126 x10e3/uL (140-360); RED BLOOD COUNT 3.06 x10e6/uL (3.6-5.1); RED CELL DISTRIBUTION WIDTH 14.6 % (11.7-14.4)
[2017-12-27 06:51] LABS: ANION GAP 14.6 mmol/L (8-16); CALCIUM 8.7 mg/dL (8.4-10.2); CREATININE, SERUM 2.05 mg/dL (0.57-1.11); POTASSIUM 3.6 mmol/L (3.5-5.1)
[2017-12-27] MEDS: ACETAMINOPHEN/CODEINE 300MG - 30MG TAB PO PRN ×2 (08:05→11:25)
[2017-12-27] MEDS: PANTOPRAZOLE SOD 40 MG TABEC PO SCH ×2 (08:05→16:57)
[2017-12-27] MEDS ORDERED: REGADENOSON 0.4 MG/5 ML SYR IV ONE (09:24)
--- NOTE | 2017-12-27 10:45 | Progress Note ---
DATE: December 27, 2017 CARDIOLOGY PROGRESS NOTE SUBJECTIVE: Patient denies chest pain or shortness of breath. She was seen for nuclear stress test. OBJECTIVE: VITAL SIGNS: Temperature 96.7 degrees, pulse 79, respiratory rate 18, blood pressure 106/62, oxygen saturation 99% on room air. GENERAL: Elderly woman, chronically ill-appearing, frail, in no acute distress. LUNGS: Clear to auscultation bilaterally. No wheezes or crackles. CARDIOVASCULAR: Normal rate, regular rhythm. No murmur. Normal S1 and S2. ABDOMEN: Soft, nontender. EXTREMITIES: No edema. CARDIAC MEDICATIONS: 1. Aspirin 81 mg p.o. daily. 2. Levothyroxine 50 mcg p.o. daily. LABS: WBC 4.64, hemoglobin 9.7, hematocrit 29.8, platelets 126,000. Sodium 142, potassium 3.6, chloride 105, CO2 26, BUN 9, creatinine 2.05. TELEMETRY: Normal sinus rhythm. IMPRESSION: 1. Chest pain. 2. End-stage renal disease, now initiated on hemodialysis. 3. Hypertension. 4. Hyperlipidemia. 5. Diabetes mellitus. 6. Recent cerebrovascular accident. 7. Anemia. 8. Hypothyroidism. RECOMMENDATIONS: Patient ruled out for myocardial infarction with serial cardiac biomarkers. However, due to her risk factors, she underwent pharmacologic nuclear stress test today. Further recommendations pending review of the images once they are available. Continue current cardiac medications. Thank you for this consult. We will continue to follow. Job#: [id number]
[2017-12-27] MEDS: ASPIRIN 81 MG CHEW TAB PO SCH (11:49)
[2017-12-27] MEDS: PRAVASTATIN 20 MG TAB PO SCH (11:49)
[2017-12-27] MEDS: BALSAM PERU/CASTOR OIL 5 GM OINT...G. TP SCH (11:49)
[2017-12-27] MEDS: ACETAMINOPHEN 325 MG TAB PO PRN ×2 (11:49→16:57)
--- NOTE | 2017-12-27 15:19 | Progress Note ---
DATE: December 27, 2017 RENAL PROGRESS NOTE SUBJECTIVE: End-stage renal disease. Tolerating dialysis Sunday, Sunday, Sunday. Next dialysis will be tomorrow. The patient is doing fine today. No nausea, no vomiting, no shortness of breath. No further bleeding from her exit site of her tunneled dialysis catheter. OBJECTIVE VITAL SIGNS: Vital signs noted. Blood pressure 118/69, 20 respirations, afebrile. LUNGS: Clear to auscultation bilaterally. CARDIOVASCULAR: S1 and S2. No rub. ABDOMEN: Soft, nontender. EXTREMITIES: No edema. LABS: Potassium 3.6, BUN 9, creatinine 2.05. IMPRESSION AND PLAN 1. End-stage renal disease. Will continue dialysis Sunday, Sunday, Sunday. 2. Hypertension is stable. 3. Anemia of chronic disease, stable. 4. Patient is awaiting outpatient chair time. Will continue to monitor closely. Job#: [id number]
[2017-12-27] MEDS: IRON SUCROSE 100 MG in SODIUM CHLORIDE 0.9% 100 ML 100 ML IV SCH (15:55)
[2017-12-27] MEDS: BISACODYL 10 MG SUPP PR PRN (18:25)
--- NOTE | 2017-12-27 20:13 | Cardiology Report ---
DATE OF STUDY: December 27, 2017 NUCLEAR STRESS REPORT PROCEDURE TITLE: Rest/stress single isotope SPECT imaging with pharmacologic stress and gated SPECT imaging. INDICATIONS: Chest pain. PROCEDURE: Pharmacologic stress testing was performed with regadenoson per protocol. The heart rate was 79 beats at rest and increased to 106 beats per minute during the regadenoson infusion. The rest blood pressure was 119/72 and decreased to 103/67 mmHg, which is a normal response. The patient did not develop any significant symptoms. The resting electrocardiogram demonstrated normal sinus rhythm with right bundle branch block. There were no ST segment changes consistent with myocardial ischemia. Myocardial perfusion imaging was performed at rest following the injection of 11 mCi of tetrofosmin. At peak pharmacologic effect, the patient was injected with 28 mCi of tetrofosmin. Gated post stress tomographic imaging was performed. The overall quality of the study is fair. Left ventricular cavity is noted to be normal sized on the rest and stress studies. SPECT images demonstrated homogenous tracer distribution throughout the myocardium. Gated SPECT imaging revealed normal myocardial thickening and wall motion. The left ventricular ejection fraction was calculated to be 61%. IMPRESSION: Myocardial perfusion imaging is normal. Overall, left ventricular systolic function was normal without regional wall motion abnormalities. Job#: [id number] [employer]
[2017-12-28] VITALS (8 sets, daily range): BP systolic 86–132; BP diastolic 51–74
[2017-12-28] MEDS ORDERED: CEFTRIAXONE SOD 1 GM VIAL IV ONE (01:00)
[2017-12-28] MEDS: CEFTRIAXONE SOD 1 GM VIAL IV SCH ×2 (01:30→23:47)
[2017-12-28] MEDS: LEVOTHYROXINE SODIUM 50 MCG TAB PO SCH (05:20)
[2017-12-28 05:58] LABS: BASOPHILS % 0.4 % (0.0-1.0); EOSINOPHILS # (AUTO) 0.1 (0.0-0.4); EOSINOPHILS % 2.6 % (0.0-6.0); HEMATOCRIT 30.8 % (34.2-44.1); HEMOGLOBIN 9.8 g/dL (12.0-16.0); LYMPHOCYTES # (AUTO) 1.1 (1.0-3.2); LYMPHOCYTES % 21.2 % (18.0-39.1); MEAN CORPUSCULAR HEMOGLOBIN 31.1 pg (28-32); MEAN CORPUSCULAR HGB CONC 31.8 g/dL (31-35); MEAN CORPUSCULAR VOLUME 97.8 fL (81-99); MONOCYTES # (AUTO) 0.4 (0.2-0.8); MONOCYTES % 8.1 % (4.4-11.3); NEUTROPHILS # (AUTO) 3.4 (2.1-6.9); NEUTROPHILS % 66.5 % (38.7-80.0); PLATELET COUNT 141 x10e3/uL (140-360); RED BLOOD COUNT 3.15 x10e6/uL (3.6-5.1); RED CELL DISTRIBUTION WIDTH 14.6 % (11.7-14.4)
[2017-12-28 06:16] LABS: ANION GAP 15.7 mmol/L (8-16); CALCIUM 9.2 mg/dL (8.4-10.2); CREATININE, SERUM 2.77 mg/dL (0.57-1.11); MAGNESIUM 1.4 MG/DL (1.3-2.1); PHOSPHORUS 2.3 MG/DL (2.3-4.7); POTASSIUM 3.7 mmol/L (3.5-5.1)
[2017-12-28] MEDS: BALSAM PERU/CASTOR OIL 5 GM OINT...G. TP SCH (09:10)
[2017-12-28] MEDS: ASPIRIN 81 MG CHEW TAB PO SCH (09:11)
[2017-12-28] MEDS: PRAVASTATIN 20 MG TAB PO SCH (09:12)
[2017-12-28] MEDS: PANTOPRAZOLE SOD 40 MG TABEC PO SCH ×2 (09:12→16:54)
--- NOTE | 2017-12-28 09:51 | Progress Note ---
DATE: December 28, 2017 RENAL PROGRESS NOTE SUBJECTIVE: Followed for end-stage renal disease. Dialysis is being done [id number]. Dialysis will be done today. No nausea, no vomiting. No shortness of breath. Exit site is not oozing any blood anymore. OBJECTIVE: VITAL SIGNS: As follows: Blood pressure 100s to 130s over 70s, 77 heart rate, 18 respirations. LUNGS: Clear to auscultation bilaterally. CARDIOVASCULAR: S1 and S2. No rub. ABDOMEN: Soft, nontender. EXTREMITIES: No edema. LABS: Hemoglobin 9.8. Chemistry: Sodium 141, potassium 3.7, chloride 104, bicarb 25, BUN is 13, creatinine is 2.77. Magnesium 1.4. IMPRESSION AND PLAN: 1. End-stage renal disease. Will continue dialysis [facility]. Will watch off dialysis over the weekend. 2. Hypertension. Blood pressure is stable. 3. Anemia of chronic disease, stable with Epogen and intravenous iron. Thank you once again. Job#: [id number]
--- NOTE | 2017-12-28 09:55 | Progress Note ---
DATE: December 28, 2017 CARDIOLOGY PROGRESS NOTE SUBJECTIVE: The patient denies chest pain or shortness of breath. OBJECTIVE VITALS: Temperature 97.6 degrees, pulse 77, respiratory rate 18, blood pressure 100/60, oxygen saturation 100% on room air. GENERAL: Awake, alert and elderly woman chronically ill-appearing and frail and in no acute distress. LUNGS: Clear to auscultation bilaterally. No wheezes or crackles. CARDIOVASCULAR: Normal rate. Regular rhythm. No murmur. Normal S1 and S2. ABDOMEN: Soft and nontender. EXTREMITIES: No edema. CARDIAC MEDICATIONS 1. Aspirin 81 mg p.o. daily. 2. Levothyroxine 50 mcg p.o. daily. LABS: WBC 5.09, hemoglobin 9.8, hematocrit 30.8, and platelets 141,000. Sodium 141, potassium 3.7, chloride 104, CO2 25, BUN 13, creatinine 2.77. Telemetry is normal sinus rhythm. IMPRESSION 1. Chest pain. 2. End-stage renal disease: Now initiated on hemodialysis. 3. Hypertension. 4. Hyperlipidemia. 5. Diabetes mellitus. 6. Recent cerebrovascular accident. 7. Anemia. 8. Hypothyroidism. RECOMMENDATIONS: The patient ruled out for myocardial infarction with serial cardiac biomarkers. Nuclear stress test was without evidence of ischemia. Continue current cardiac medications. No further cardiac evaluation is indicated at this time. She is pending placement of outpatient dialysis. Thank you for this consult. We will continue to follow. Job#: [id number] MO
[2017-12-28] MEDS: ACETAMINOPHEN 325 MG TAB PO PRN (14:23)
[2017-12-28] MEDS: IRON SUCROSE 100 MG in SODIUM CHLORIDE 0.9% 100 ML 100 ML IV SCH (16:43)
[2017-12-28] MEDS: EPOETIN ALFA 10000 UNIT/ML VIAL SC SCH (19:41)
[2017-12-29] MEDS: ACETAMINOPHEN 325 MG TAB PO PRN (00:30)
[2017-12-29 05:25] VITALS: BP 94/58
[2017-12-29 05:34] LABS: BASOPHILS % 0.4 % (0.0-1.0); EOSINOPHILS # (AUTO) 0.1 (0.0-0.4); EOSINOPHILS % 1.7 % (0.0-6.0); HEMATOCRIT 28.8 % (34.2-44.1); HEMOGLOBIN 9.1 g/dL (12.0-16.0); LYMPHOCYTES # (AUTO) 1.2 (1.0-3.2); LYMPHOCYTES % 25.3 % (18.0-39.1); MEAN CORPUSCULAR HEMOGLOBIN 30.7 pg (28-32); MEAN CORPUSCULAR HGB CONC 31.6 g/dL (31-35); MEAN CORPUSCULAR VOLUME 97.3 fL (81-99); MONOCYTES # (AUTO) 0.6 (0.2-0.8); NEUTROPHILS # (AUTO) 2.7 (2.1-6.9); NEUTROPHILS % 59.3 % (38.7-80.0); PLATELET COUNT 148 x10e3/uL (140-360); RED BLOOD COUNT 2.96 x10e6/uL (3.6-5.1); RED CELL DISTRIBUTION WIDTH 14.4 % (11.7-14.4)
[2017-12-29] MEDS: LEVOTHYROXINE SODIUM 50 MCG TAB PO SCH (05:45)
[2017-12-29 05:54] LABS: ANION GAP 12.6 mmol/L (8-16); CALCIUM 8.7 mg/dL (8.4-10.2); CREATININE, SERUM 1.92 mg/dL (0.57-1.11); POTASSIUM 3.6 mmol/L (3.5-5.1)
[2017-12-29] MEDS: PRAVASTATIN 20 MG TAB PO SCH (09:19)
[2017-12-29] MEDS: BALSAM PERU/CASTOR OIL 5 GM OINT...G. TP SCH (09:19)
[2017-12-29] MEDS: ASPIRIN 81 MG CHEW TAB PO SCH (09:19)
[2017-12-29] MEDS: PANTOPRAZOLE SOD 40 MG TABEC PO SCH ×2 (09:19→16:31)
--- NOTE | 2017-12-29 11:34 | Progress Note ---
DATE: December 29, 2017 CARDIOLOGY PROGRESS NOTE SUBJECTIVE: No major events overnight. OBJECTIVE VITAL SIGNS: Temperature 96.8, pulse 75, respiratory rate 20, blood pressure 94/58, satting 100% on room air. GENERAL: Awake, alert elderly woman chronically ill-appearing, frail and in no acute distress. CARDIOVASCULAR: Normal rate. Regular rhythm. No murmurs, rubs or gallops. Normal S1 and S2. LUNGS: Clear to auscultation bilaterally. No wheezes or crackles. ABDOMEN: Soft and nontender. EXTREMITIES: No edema. CARDIAC MEDICATIONS: Reviewed. LABORATORY DATA: Reviewed. IMPRESSION AND PLAN 1. Chest pain. 2. End-stage renal disease: Now on dialysis. 3. Hypertension. 4. Hyperlipidemia. 5. Diabetes. 6. Recent cerebrovascular accident. 7. Anemia. 8. Hypothyroidism. RECOMMENDATIONS: The patient ruled out for myocardial infarction with serial cardiac biomarkers on admission. Nuclear stress test was done for further risk stratification given her cardiovascular risk factors. However, this showed normal perfusion. Would continue her aspirin and statin. No further cardiac evaluation is needed at this time. The patient is okay to be discharged from a cardiovascular standpoint. Thank you for this consult. Will continue to follow. Job#: [id number] PRASANTH
[2017-12-29 12:00] VITALS: BP 108/61
[2017-12-29] MEDS: IRON SUCROSE 100 MG in SODIUM CHLORIDE 0.9% 100 ML 100 ML IV SCH (15:26)
[2017-12-29 16:00] VITALS: BP 110/71
--- NOTE | 2017-12-29 17:47 | Progress Note ---
DATE: INFECTIOUS DISEASE PROGRESS NOTE SUBJECTIVE: Ms. Persaud is doing better. There is no new complaint. REVIEW OF SYSTEMS: Otherwise unremarkable. PHYSICAL EXAMINATION GENERAL: She is currently alert, oriented, does not seem to be in acute distress. VITAL SIGNS: Stable. Currently afebrile. HEENT: She does not appear icteric. NECK: Supple. CHEST: Clear. HEART: S1 and S2. No S3 or S4, no murmur. ABDOMEN: Soft. Bowel sounds present. No tenderness. EXTREMITIES: No edema. SKIN: No rash. IMPRESSION: Bacteremia. Seems to be getting better. To finish 14 days of antibiotic. Sepsis resolved. Will follow. Job#: [id number] EV
[2017-12-29 20:00] VITALS: BP 100/57
[2017-12-29 21:00] VITALS: BP 100/57
[2017-12-30] VITALS (7 sets, daily range): BP systolic 96–120; BP diastolic 52–80
[2017-12-30] MEDS: CEFTRIAXONE SOD 1 GM VIAL IV SCH (00:15)
[2017-12-30] MEDS: LEVOTHYROXINE SODIUM 50 MCG TAB PO SCH (06:13)
[2017-12-30] MEDS: PRAVASTATIN 20 MG TAB PO SCH (08:48)
[2017-12-30] MEDS: PANTOPRAZOLE SOD 40 MG TABEC PO SCH ×2 (08:48→17:30)
[2017-12-30] MEDS: BALSAM PERU/CASTOR OIL 5 GM OINT...G. TP SCH (08:48)
[2017-12-30] MEDS: ASPIRIN 81 MG CHEW TAB PO SCH (08:48)
[2017-12-30] MEDS: IRON SUCROSE 100 MG in SODIUM CHLORIDE 0.9% 100 ML 100 ML IV SCH (15:30)
[2017-12-30] MEDS ORDERED: TRAMADOL HCL 50 MG TAB PO PRN (15:30)
[2017-12-30] MEDS: ACETAMINOPHEN 325 MG TAB PO PRN (15:40)
--- NOTE | 2017-12-30 16:59 | Progress Note ---
DATE: December 30, 2017 CARDIOLOGY PROGRESS NOTE SUBJECTIVE: No major events overnight. Complaining about some ankle pain. OBJECTIVE VITAL SIGNS: Temperature 97.5, pulse 70, respiratory rate 20, blood pressure 120/80, satting 97% on room air. GENERAL: Elderly white female, chronically ill-appearing, frail. No acute distress. CARDIOVASCULAR: Normal rate, regular rhythm. No murmurs, rubs or gallops. Normal S1/S2. Palpable radial pulses. Palpable carotid pulses. Bruising along the right upper chest. LUNGS: Clear to auscultation bilaterally. No wheezes or crackles. ABDOMEN: Soft, nontender. No masses. EXTREMITIES: No edema. CARDIAC MEDICATIONS: Reviewed. LABORATORY DATA: Reviewed. IMAGING DATA: Reviewed. TELEMETRY: Shows normal sinus rhythm. IMPRESSION 1. Chest pain. 2. End-stage renal disease on dialysis. 3. Hypertension. 4. Hyperlipidemia. 5. Diabetes. 6. Recent cerebrovascular accident. 7. Anemia. 8. Hypothyroidism. RECOMMENDATIONS: Patient ruled out for a myocardial infarction with serial cardiac biomarkers on admission. A nuclear stress test done last week shows normal perfusion without any evidence of ischemia or scar. Continue her current cardiovascular medications. Patient is ready to be discharged from a cardiovascular standpoint. Thank you for this consult. Will continue to follow. Job#: [id number] PATRICIO
[2017-12-31] VITALS (9 sets, daily range): BP systolic 90–123; BP diastolic 62–74
[2017-12-31] MEDS: CEFTRIAXONE SOD 1 GM VIAL IV SCH ×2 (00:20→23:57)
[2017-12-31 05:31] LABS: BASOPHILS % 0.4 % (0.0-1.0); EOSINOPHILS # (AUTO) 0.1 (0.0-0.4); EOSINOPHILS % 2.6 % (0.0-6.0); HEMOGLOBIN 9.5 g/dL (12.0-16.0); LYMPHOCYTES # (AUTO) 1.1 (1.0-3.2); LYMPHOCYTES % 19.9 % (18.0-39.1); MEAN CORPUSCULAR HEMOGLOBIN 32.2 pg (28-32); MEAN CORPUSCULAR HGB CONC 32.8 g/dL (31-35); MEAN CORPUSCULAR VOLUME 98.3 fL (81-99); MONOCYTES # (AUTO) 0.5 (0.2-0.8); MONOCYTES % 8.8 % (4.4-11.3); NEUTROPHILS # (AUTO) 3.6 (2.1-6.9); NEUTROPHILS % 66.6 % (38.7-80.0); PLATELET COUNT 149 x10e3/uL (140-360); RED BLOOD COUNT 2.95 x10e6/uL (3.6-5.1); RED CELL DISTRIBUTION WIDTH 14.6 % (11.7-14.4)
[2017-12-31] MEDS: LEVOTHYROXINE SODIUM 50 MCG TAB PO SCH (05:36)
[2017-12-31 05:48] LABS: ANION GAP 14.5 mmol/L (8-16); CREATININE, SERUM 3.21 mg/dL (0.57-1.11); MAGNESIUM 1.5 MG/DL (1.3-2.1); PHOSPHORUS 2.3 MG/DL (2.3-4.7); POTASSIUM 3.5 mmol/L (3.5-5.1)
[2017-12-31] MEDS: ASPIRIN 81 MG CHEW TAB PO SCH (08:38)
[2017-12-31] MEDS: PANTOPRAZOLE SOD 40 MG TABEC PO SCH ×2 (08:38→16:12)
[2017-12-31] MEDS: PRAVASTATIN 20 MG TAB PO SCH (08:38)
[2017-12-31] MEDS ORDERED: BALSAM PERU/CASTOR OIL 60 GM OINT...G. TP PRN (14:15)
[2017-12-31] MEDS: IRON SUCROSE 100 MG in SODIUM CHLORIDE 0.9% 100 ML 100 ML IV SCH (16:12)
--- NOTE | 2017-12-31 16:37 | Progress Note ---
DATE: December 31, 2017 CARDIOLOGY PROGRESS NOTE SUBJECTIVE: No major events overnight. OBJECTIVE VITAL SIGNS: Temperature 96.6, pulse 79, respiratory rate 20, blood pressure 109/63, satting 99% on room air. GENERAL: Thin, elderly white female, chronically ill-appearing. No acute distress. CARDIOVASCULAR: Normal rate, regular rhythm. No murmurs, rubs or gallops. Normal S1, S2. Palpable radial pulses. Palpable carotid pulses. Bruising along the right upper chest. LUNGS: Clear to auscultation bilaterally. No wheezes or crackles. ABDOMEN: Soft, nontender. No masses. EXTREMITIES: No edema. CARDIAC MEDICATIONS: Reviewed. LABORATORY DATA: Reviewed. IMAGING DATA: Reviewed. TELEMETRY DATA: Shows normal sinus rhythm. ASSESSMENTS 1. Chest pain. 2. End-stage renal disease, on dialysis. 3. Hypertension. 4. Hyperlipidemia. 5. Diabetes. 6. Recent cerebrovascular accident. 7. Anemia. 8. Hypothyroidism. RECOMMENDATIONS: Patient ruled out for acute myocardial infarction with serial cardiac biomarkers on admission. A nuclear stress test was done to risk stratify further and showed normal perfusion without any evidence of ischemia or scar. Recommend continuing her current cardiovascular medications. Patient is ready to be discharged from a cardiovascular standpoint pending placement per primary team. Thank you for this consult. Will continue to follow. Job#: [id number] CHRIS
[2017-12-31] MEDS: BALSAM PERU/CASTOR OIL 60 GM OINT...G. TP SCH (16:40)
[2018-01-01] VITALS (7 sets, daily range): BP systolic 104–116; BP diastolic 65–80
[2018-01-01] MEDS: LEVOTHYROXINE SODIUM 50 MCG TAB PO SCH (05:18)
[2018-01-01] MEDS: ASPIRIN 81 MG CHEW TAB PO SCH (08:29)
[2018-01-01] MEDS: PRAVASTATIN 20 MG TAB PO SCH (08:29)
[2018-01-01] MEDS: PANTOPRAZOLE SOD 40 MG TABEC PO SCH ×2 (08:29→15:55)
--- NOTE | 2018-01-01 11:32 | Diagnostic Imaging Report ---
Procedure: Right internal jugular non-tunneled hemodialysis catheter placement with fluoroscopic guidance pneumatic hoist operator: Dr. Tima Brown Pre-operative diagnosis: Requiring HD access. Post-operative diagnosis: Status post HD access placement Conscious Sedation: None The patient's heart rate and pulse oximetry were continuously monitored by the record label intern nurse. Additional Medications: Lidocaine 1% for local anesthesia Fluoroscopy time: 3.9 Dose-area Product: 121.3 mGycm2. Estimated blood loss: Minimal Specimens: None Implants: 14 Fr x 15 cm Schon non-tunneled hemodialysis catheter TECHNIQUE/FINDINGS: Informed consent was obtained from the patient and documented in the medical record after discussion of risks and benefits. The patient was placed in the supine position. Preliminary sonographic evaluation of the right neck confirmed a patent and compressible right internal jugular vein. The neck was then prepped and draped in a standard sterile fashion. Subsequently, 1% lidocaine was infiltrated into the skin and subcutaneous tissues for local anesthesia. Then under continuous sonographic guidance an 18-gauge singlewall needle was advanced into the right internal jugular vein. A 0.035-in. wire was advanced. The needle was removed over the wire and the tract was dilated. Then, a 14 Fr x 15 cm Schon non-tunneled hemodialysis catheter was advanced. Catheter tip terminates at the cavoatrial junction without kinking or pneumothorax. The wire was then removed. Each lumen was tested and showed adequate bidirectional flow. The catheter was secured to the skin with Monocryl, flushed with heparin, and covered by a sterile dressing. The patient tolerated the procedure well without immediate duplication. IMPRESSION: Placement of a 14 Fr x 15 cm non-tunneled hemodialysis catheter via right internal jugular approach under fluoroscopic guidance. Catheter is ready for use. Signed by: Dr. Tima Brown MD on 12/26/2017 10:06 AM
--- NOTE | 2018-01-01 11:33 | Diagnostic Imaging Report ---
Date and Time: 12/24/2017 Procedure: Tunneled hemodialysis catheter placement followed by temporary hemodialysis catheter removal marine service operator: Dr. Keen Pre-operative diagnosis: End-stage renal disease Post-operative diagnosis: End-stage renal disease Conscious Sedation: Versed 0.5 mg and Fentanyl 50 mcg. The patient's heart rate and pulse oximetry were continuously monitored by the interventional radiology nurse. Blood pressure was monitored at 5 minute intervals. Additional Medications: Lidocaine 1% for local anesthesia Fluoroscopy time: 3.9 minutes Dose-area Product: 135.9 cGycm2. Contrast used: None Estimated blood loss: Less than 25 cc Blood products administered: None Specimens: Temporary hemodialysis catheter, discarded Implants: 14.5 Mongolian, 19 cm tip-cuff tunneled hemodialysis catheter Condition at completion of procedure: Stable Disposition: Returned to floor DISCUSSION: Procedure in detail: Informed consent for the procedure was obtained from the patient after discussion of risks and benefits. The right neck and upper chest was prepped and draped in the standard sterile fashion after the patient was placed in the supine position on the fluoroscopic table. 1% lidocaine was administered into the skin and subcutaneous tissues of the right lower neck for local anesthesia. Then, under continuous sonographic guidance, a 21-gauge micropuncture needle was advanced into the right internal jugular vein. A 0.018 inch wire was advanced centrally under fluoroscopic guidance. The needle was then removed and access was secured with a micropuncture sheath. Intravascular length to the upper right atrium was determined using the microwire, which was then removed along with the inner dilator of the micropuncture sheath. A 0.035 inch Amplatz wire was then advanced through the micropuncture sheath into the inferior vena cava under fluoroscopic guidance. Attention was then turned to the right upper chest. A suitable catheter exit site was determined, approximately 3 fingerbreadths inferior to the clavicle. The skin was marked. 1% lidocaine with epinephrine was used to anesthetize a subcutaneous tract extending from the planned catheter exit site to the venotomy at the right lower neck. A stab incision was made on the right upper chest. Subsequently, the catheter was tunneled from the exit site of the right upper chest to the venotomy at the right lower neck. The retention cuff of the catheter was advanced well into the subcutaneous tunnel. The micropuncture sheath was then removed over the wire and the tract was serially dilated. Finally, a 15 Mongolian peel-away sheath was advanced over the wire under fluoroscopic guidance. The wire and inner dilator of the sheath were removed and the catheter was advanced through the peel-away sheath, which was then broken and removed. The catheter tip was positioned in the upper right atrium. Each catheter lumen showed good bidirectional flow. Each lumen was then packed with 2000 units of heparin. The catheter was secured at the exit site on the right upper chest with monofilament nylon suture. The venotomy at the right lower neck was closed with tissue adhesive. A sterile dressing was applied. The retention sutures for the existing temporary hemodialysis catheter were then cut and the catheter was removed. Hemostasis was achieved with manual compression. An additional sterile dressing was applied. The patient tolerated the procedure well without immediate complication. Impression: Successful placement of a tunneled dual-lumen hemodialysis catheter (16-Mongolian, 19-cm tip-cuff length) by a right internal jugular approach, followed by removal of right internal jugular temporary hemodialysis catheter Signed by: Dr. Popeye Keen M.D. on 12/25/2017 5:02 PM
--- NOTE | 2018-01-01 12:18 | Progress Note ---
DATE: January 01, 2018 RENAL PROGRESS NOTE SUBJECTIVE: Followed for end-stage renal disease. Tolerating dialysis Sunday/Sunday/Sunday. Dialysis will be tomorrow. No nausea, no vomiting, no shortness of breath. OBJECTIVE VITAL SIGNS: Have been noted and are stable. LUNGS: Clear to auscultation bilaterally. CARDIOVASCULAR: S1 and S2. No rub. ABDOMEN: Soft, nontender. EXTREMITIES: No edema. LABS: Have been reviewed. IMPRESSION AND PLAN 1. End-stage renal disease. Continue dialysis Sunday/Sunday/Sunday. Will await outpatient dialysis placement. 2. Hypertension. Blood pressure is controlled. 3. Anemia of chronic disease. Stable. Thank you once again. Job#: [id number] EV
--- NOTE | 2018-01-01 12:53 | Progress Note ---
DATE: January 01, 2018 CARDIOLOGY PROGRESS NOTE SUBJECTIVE: Patient denies chest pain or shortness of breath. She is pending outpatient placement for dialysis. OBJECTIVE VITAL SIGNS: Temperature 96.8 degrees, pulse 64, respiratory rate 20, blood pressure 114/76, oxygen saturation 99% on room air. GENERAL: Awake, alert, in no acute distress. LUNGS: Clear to auscultation bilaterally. No wheezes or crackles. CARDIOVASCULAR: Normal rate, regular rhythm. No murmur. Normal S1 and S2. ABDOMEN: Soft, nontender. EXTREMITIES: No edema. CARDIAC MEDICATIONS 1. Aspirin 81 mg p.o. daily. 2. Levothyroxine 50 mcg p.o. daily. LABS: None today. TELEMETRY: Normal sinus rhythm. IMPRESSION 1. Chest pain. 2. End-stage renal disease, initiated on hemodialysis. 3. Hypertension. 4. Hyperlipidemia. 5. Diabetes mellitus. 6. Recent cerebrovascular accident. 7. Anemia. 8. Hypothyroidism. RECOMMENDATIONS: Patient ruled out for myocardial infarction with serial cardiac biomarkers. Nuclear stress test was done without evidence of ischemia. Continue current cardiac medications. Disposition is pending outpatient dialysis chair. Thank you for this consult. We will continue to follow. Job#: [id number] EV
[2018-01-01] MEDS: BALSAM PERU/CASTOR OIL 60 GM OINT...G. TP SCH (14:49)
[2018-01-02] MEDS: CEFTRIAXONE SOD 1 GM VIAL IV SCH
[2018-01-02 03:58] VITALS: BP 104/69
[2018-01-02 05:33] LABS: BASOPHILS % 0.8 % (0.0-1.0); EOSINOPHILS # (AUTO) 0.1 (0.0-0.4); EOSINOPHILS % 2.7 % (0.0-6.0); HEMATOCRIT 29.7 % (34.2-44.1); HEMOGLOBIN 9.3 g/dL (12.0-16.0); LYMPHOCYTES # (AUTO) 1.3 (1.0-3.2); LYMPHOCYTES % 26.2 % (18.0-39.1); MEAN CORPUSCULAR HEMOGLOBIN 31.1 pg (28-32); MEAN CORPUSCULAR HGB CONC 31.3 g/dL (31-35); MEAN CORPUSCULAR VOLUME 99.3 fL (81-99); MONOCYTES # (AUTO) 0.7 (0.2-0.8); MONOCYTES % 13.6 % (4.4-11.3); NEUTROPHILS # (AUTO) 2.6 (2.1-6.9); NEUTROPHILS % 54.8 % (38.7-80.0); PLATELET COUNT 164 x10e3/uL (140-360); RED BLOOD COUNT 2.99 x10e6/uL (3.6-5.1); RED CELL DISTRIBUTION WIDTH 15.4 % (11.7-14.4)
[2018-01-02] MEDS: LEVOTHYROXINE SODIUM 50 MCG TAB PO SCH (06:00)
[2018-01-02 06:01] LABS: ANION GAP 11.4 mmol/L (8-16); CREATININE, SERUM 2.71 mg/dL (0.57-1.11); POTASSIUM 3.4 mmol/L (3.5-5.1)
[2018-01-02 08:00] VITALS: BP 126/55
[2018-01-02] MEDS: PANTOPRAZOLE SOD 40 MG TABEC PO SCH ×2 (08:10→16:25)
[2018-01-02] MEDS: PRAVASTATIN 20 MG TAB PO SCH (08:10)
[2018-01-02] MEDS: BALSAM PERU/CASTOR OIL 60 GM OINT...G. TP SCH (08:10)
[2018-01-02] MEDS: ASPIRIN 81 MG CHEW TAB PO SCH (08:10)
[2018-01-02] MEDS ORDERED: POTASSIUM CHLORIDE 20 MEQ TAB CR PO NR (09:30)
[2018-01-02] MEDS ORDERED: HEPARIN SOD (PORCINE) 1000 UNIT/ML SDV IV PRN (09:45)
[2018-01-02 10:56] VITALS: BP 126/55
[2018-01-02 12:00] VITALS: BP 91/56
[2018-01-02] MEDS ORDERED: POTASSIUM CHLORIDE 20 MEQ TAB CR PO ONE (13:00)
[2018-01-02 16:00] VITALS: BP 100/58
--- NOTE | 2018-01-02 16:05 | Progress Note ---
DATE: January 02, 2018 RENAL PROGRESS NOTE SUBJECTIVE: Followed for end-stage renal disease. Tolerating dialysis Sunday/Sunday/Sunday. No nausea, no vomiting, no shortness of breath. OBJECTIVE VITAL SIGNS: Have been noted and are stable. LUNGS: Clear to auscultation bilaterally. CARDIOVASCULAR: S1 and S2. No rub. ABDOMEN: Soft, nontender. EXTREMITIES: No edema. LABS: Have been reviewed. IMPRESSION AND PLAN 1. End-stage renal disease. Will continue dialysis Sunday/Sunday/Sunday. Will only do 2-1/2 hours today since the creatinine is quite low around 2.7. 2. Hypertension. Blood pressure is stable. 3. Anemia of chronic disease is stable. Thank you once again. Job#: [id number] EV
[2018-01-02 20:00] VITALS: BP 179/72
[2018-01-03] VITALS (9 sets, daily range): BP systolic 94–119; BP diastolic 51–64
[2018-01-03] MEDS: CEFTRIAXONE SOD 1 GM VIAL IV SCH (00:33)
[2018-01-03] MEDS: LEVOTHYROXINE SODIUM 50 MCG TAB PO SCH (05:55)
[2018-01-03 05:59] LABS: ANION GAP 12.8 mmol/L (8-16); CALCIUM 8.7 mg/dL (8.4-10.2); CREATININE, SERUM 2.17 mg/dL (0.57-1.11); POTASSIUM 3.8 mmol/L (3.5-5.1)
[2018-01-03] MEDS: PANTOPRAZOLE SOD 40 MG TABEC PO SCH ×2 (07:50→17:29)
[2018-01-03] MEDS: PRAVASTATIN 20 MG TAB PO SCH (08:16)
[2018-01-03] MEDS: ASPIRIN 81 MG CHEW TAB PO SCH (08:16)
[2018-01-03] MEDS: BALSAM PERU/CASTOR OIL 60 GM OINT...G. TP SCH (08:17)
--- NOTE | 2018-01-03 12:31 | Progress Note ---
DATE: January 03, 2018 RENAL PROGRESS NOTE SUBJECTIVE: Followed for end-stage renal disease. Tolerating dialysis Sunday, Sunday, and Sunday. Next dialysis will be tomorrow. No nausea, no vomiting, no shortness of breath. OBJECTIVE VITAL SIGNS: Have been noted and are stable. LUNGS: Clear to auscultation bilaterally. CARDIOVASCULAR: S1 and S2. No rub. ABDOMEN: Soft and nontender. EXTREMITIES: No edema. LABS: Potassium 3.8, BUN 6, and creatinine 2.2. IMPRESSION AND PLAN 1. End-stage renal disease. Continue dialysis Sunday, Sunday, and Sunday. Awaiting outpatient dialysis chair time. 2. Hypertension. Blood pressure is stable. 3. Anemia of chronic disease, stable. Thank you once again. Job#: [id number] VAS
--- NOTE | 2018-01-03 12:44 | Progress Note ---
DATE: January 03, 2018 CARDIOLOGY PROGRESS NOTE SUBJECTIVE: Patient denies shortness of breath. She reports her chest is sore, but this is improving. OBJECTIVE VITAL SIGNS: Temperature 96.2 degrees, pulse 67, respiratory rate 20, blood pressure 108/60, oxygen saturation 99% on room air. GENERAL: Awake, alert, in no acute distress. LUNGS: Clear to auscultation bilaterally. No wheezes or crackles. CARDIOVASCULAR: Normal rate, regular rhythm. No murmur. Normal S1 and S2. ABDOMEN: Soft, nontender. EXTREMITIES: No edema. CARDIAC MEDICATIONS 1. Aspirin 81 mg p.o. daily. 2. Levothyroxine 50 mcg p.o. daily. LABS: Sodium 141, potassium 3.8, chloride 106, CO2 of 26, BUN 6, creatinine 2.17. TELEMETRY: Normal sinus rhythm. IMPRESSION 1. Chest pain. 2. End-stage renal disease, initiated on hemodialysis. 3. Hypertension. 4. Dyslipidemia. 5. Diabetes mellitus. 6. Recent cerebrovascular accident. 7. Anemia. 8. Hypothyroidism. RECOMMENDATIONS: Patient ruled out for myocardial infarction with serial cardiac biomarkers. Nuclear stress test was without evidence of ischemia. Continue current cardiac medications. Patient is pending placement for SNF. Thank you for this consult. We will continue to follow. Job#: [id number] VAS
[2018-01-03] MEDS ORDERED: ONDANSETRON HCL 4 MG ORAL DISINTEGRATING TAB PO NR (21:15)
--- NOTE | 2018-01-04 17:33 | Discharge Summary ---
DISCHARGE DIAGNOSES: 1. Weakness. 2. End-stage renal disease. 3. Hypertension. 4. History of recent cerebrovascular accident. 5. Anorexia. HISTORY OF PRESENT ILLNESS AND HOSPITAL COURSE: The patient is a lady who suffered a significant stroke recently, who was at home, but unfortunately was not doing well. She had failure to thrive secondary to anorexia and nausea which was thought to be due to worsening kidney function so she was brought in and started on her dialysis which actually made improvement in her nausea, but unfortunately the patient's anorexia was still prevalent even though she was improving in her p.o. intake. I had long discussions with the patient on multiple occasions as well as the daughter that if she does not improve on her p.o. intake then a PEG tube will be necessary for nutritional support. Patient states at this time she does not want that so will try to increase her p.o. intake and will address this on future evaluation, but I told her that if she does not eat significantly in a short period time that the risk of is very high. She was then transferred to a long-term facility per the patient's daughter's wishes for her to have continued rehabilitation to try to improve on her eating. Please see hospital chart for full details. AXEL MURDOCK MD Job#: [id number]
== END 2018-01-03 22:56 | DRG 871 ==
LOC: ER 17:25 → ERHOLD 18:39 → MED/SURG 20:16 → MED/SURG3 12-24 21:57 → IMCU 12-25 01:09 → MED/SURG3 12-29 07:44
PROVIDERS: ADMIT Internal Medicine; ATTEND Internal Medicine
PROC: 02HV33Z Insertion of Infusion Device into Superior Vena Cava, Percutaneous Approach (ICD-10-PCS; principal; 2017-12-21)
PROC: B5181ZA Fluoroscopy of Superior Vena Cava using Low Osmolar Contrast, Guidance (ICD-10-PCS; 2017-12-21)
PROC: 5A1D70Z Performance of Urinary Filtration, Intermittent, Less than 6 Hours Per Day (ICD-10-PCS; 2017-12-22)
PROC: 5A1D70Z Performance of Urinary Filtration, Intermittent, Less than 6 Hours Per Day (ICD-10-PCS; 2017-12-24)
PROC: 5A1D70Z Performance of Urinary Filtration, Intermittent, Less than 6 Hours Per Day (ICD-10-PCS; 2017-12-26)
PROC: 30233N1 Transfusion of Nonautologous Red Blood Cells into Peripheral Vein, Percutaneous Approach (ICD-10-PCS; 2017-12-26)
PROC: 5A1D70Z Performance of Urinary Filtration, Intermittent, Less than 6 Hours Per Day (ICD-10-PCS; 2017-12-28)
PROC: 5A1D70Z Performance of Urinary Filtration, Intermittent, Less than 6 Hours Per Day (ICD-10-PCS; 2017-12-31)
PROC: 5A1D70Z Performance of Urinary Filtration, Intermittent, Less than 6 Hours Per Day (ICD-10-PCS; 2018-01-02)
DX: A41.9 Sepsis, unspecified organism (principal); E43 Unspecified severe protein-calorie malnutrition; N18.6 End stage renal disease; I12.0 Hypertensive chronic kidney disease with stage 5 chronic kidney disease or end stage renal disease; N39.0 Urinary tract infection, site not specified; T82.41XA Breakdown (mechanical) of vascular dialysis catheter, initial encounter; I69.354 Hemiplegia and hemiparesis following cerebral infarction affecting left non-dominant side; E11.22 Type 2 diabetes mellitus with diabetic chronic kidney disease; Z82.49 Family history of ischemic heart disease and other diseases of the circulatory system; D63.1 Anemia in chronic kidney disease; E78.5 Hyperlipidemia, unspecified; R07.9 Chest pain, unspecified; E03.9 Hypothyroidism, unspecified; B95.7 Other staphylococcus as the cause of diseases classified elsewhere; Z79.01 Long term (current) use of anticoagulants; E83.39 Other disorders of phosphorus metabolism; B96.20 Unspecified Escherichia coli [E. coli] as the cause of diseases classified elsewhere; B95.2 Enterococcus as the cause of diseases classified elsewhere; R53.81 Other malaise; Z88.1 Allergy status to other antibiotic agents; Z88.8 Allergy status to other drugs, medicaments and biological substances
CPT/HCPCS: 36415; 36556; 36558; 71045; 74176; 74230; 74470; 76705; 77001; 78227; 78452; 80048; 80053; 80061; 81001; 82550; 82553; 82728; 82948; 83540; 83605; 83735; 83880; 84100; 84466; 84484; 85025; 85610; 85730; 86704; 86705; 86706; 86850; 86900; 86920; 87040; 87071; 87086; 87186; 87205; 87340; 87350; 90962; 93005; 93017; 93306; 96367; 96372; 97139; 99285; A9502; A9537; J0696; J1644; J1756; J2001; J2060; J2150; J2250; J2405; J2550; J2805; J3370; J7030; J7040; J7799; P9016; Q4081